=== PATIENT | female | born 1980 | race Caucasian/White ===

== ENCOUNTER → 2016-11-28 | Outpatient (CLI) | payer OTHER ==
[~2016-11-28] MED LIST: ACET-1311 PO; BCPILLS PO; BUPRTAB51 PO; CALC500C3 PO; CALC500T68 PO; DIVA500T59 PO; FAMO10TA10 PO; IBUP-1427 PO; MTR600X PO; PRENTAB26 PO; ZINC1CAP PO
[2016-11-28 14:40] LABS: URINE APPEARANCE CLEAR (CLEAR); URINE BILIRUBIN NEG (NEG); URINE COLOR YELLOW; URINE NITRITE NEG (NEG); URINE PH 6.5 (4.5-7.5); URINE SPECIFIC GRAVITY 1.004 (1.000-1.030); UROBILINOGEN NEG (NEG)
[2016-11-28 14:46] LABS: MANUAL MICROSCOPIC REQUIRED? NO; REVIEW REQ? NO
== END | disposition home or self-care (01) ==
LOC: C.LABSPEC 13:42
PROVIDERS: ATTEND Obstetrics & Gynecology
DX: O09.519 Supervision of elderly primigravida, unspecified trimester (principal)

== ENCOUNTER → 2016-12-14 | Outpatient (CLI) | payer OTHER | END | disposition home or self-care (01) | LOC: C.PAPS 13:39 | PROVIDERS: ATTEND Obstetrics & Gynecology | DX: O09.511 Supervision of elderly primigravida, first trimester (principal) ==

== ENCOUNTER → 2016-12-14 | Outpatient (CLI) | payer OTHER ==
[2016-12-14 12:08] LABS: BASO % 0.2 %; BASO ABS # 0.02 K/uL (0-0.2); COMPLETE YES; EOS % 0.4 %; HEMATOCRIT 32.7 % (37-47); IG% 0.3 %; LYMPH ABS # 1.83 K/uL (1.2-3.4); MEAN CELL VOLUME 83.6 fL (80-100); MEAN CORPUSCULAR HEMOGLOBIN 28.9 pg (25-34); MEAN CORPUSCULAR HGB CONC 34.6 g/dl (32-36); MEAN PLATELET VOLUME 10.2 fL (7.4-10.4); MONO % 8.3 %; NEUT % 72.8 %; PLATELET COUNT 261 K/uL (130-400); RED BLOOD COUNT 3.91 M/uL (4.2-5.4); WHITE BLOOD COUNT 10.18 K/uL (4.8-10.8)
[2016-12-16 01:09] LABS: CHLAMYDIA TRACH RNA*** NOT DETECTED (NOT DETECTED); GC (NEIS GONORRHOEAE)RNA** NOT DETECTED (NOT DETECTED)
== END | disposition home or self-care (01) ==
LOC: C.LAB1850 10:45
PROVIDERS: ATTEND Obstetrics & Gynecology
DX: O09.519 Supervision of elderly primigravida, unspecified trimester (principal)

== ENCOUNTER → 2016-12-25 | Outpatient (CLI) | payer OTHER ==
[2016-12-28 16:30] LABS: HCT 33.7 % (35.0-45.0); HEMOGLOBIN A2 2.7 % (1.8-3.5); HGB 11.1 g/dL (11.7-15.5); MCH 29.5 pg (27.0-33.0); RBC 3.79 Mill/uL (3.80-5.10); RDW 14.6 % (11.0-15.0)
== END | disposition home or self-care (01) ==
LOC: C.LAB1850 12:43
PROVIDERS: ATTEND Obstetrics & Gynecology
DX: D64.9 Anemia, unspecified (principal)

== ENCOUNTER → 2017-01-24 | Outpatient (CLI) | payer OTHER ==
[~2017-01-24] MED LIST changes: -FAMO10TA10 PO; +FAMO10TA16 PO
[2017-01-24 17:19] LABS: GTGD 50 Grams
== END | disposition home or self-care (01) ==
LOC: C.LAB1850 13:42
PROVIDERS: ATTEND Obstetrics & Gynecology
DX: O09.511 Supervision of elderly primigravida, first trimester (principal); Z3A.00 Weeks of gestation of pregnancy not specified

== ENCOUNTER → 2017-04-18 | Outpatient (CLI) | payer OTHER ==
[~2017-04-18] MED LIST changes: +FAMO10TA10 PO; -FAMO10TA16 PO
[2017-04-18 15:48] LABS: URINE APPEARANCE CLEAR (CLEAR); URINE BILIRUBIN NEG (NEG); URINE COLOR YELLOW; URINE EPITHELIAL CELL AUTO 20-30 /lpf (0-5); URINE NITRITE NEG (NEG); URINE SPECIFIC GRAVITY 1.019 (1.000-1.030); UROBILINOGEN NEG (NEG)
[2017-04-18 15:49] LABS: MANUAL MICROSCOPIC REQUIRED? NO; REVIEW REQ? NO
== END | disposition home or self-care (01) ==
LOC: C.LABSPEC 15:33
PROVIDERS: ATTEND Obstetrics & Gynecology
DX: O09.93 Supervision of high risk pregnancy, unspecified, third trimester (principal)

== ENCOUNTER → 2017-04-18 | Outpatient (CLI) | payer OTHER ==
[2017-04-18 15:23] LABS: HEMATOCRIT 33.3 % (37-47)
[2017-04-18 18:27] LABS: GTGD 50 Grams
== END | disposition home or self-care (01) ==
LOC: C.LAB1850 14:11
PROVIDERS: ATTEND Obstetrics & Gynecology
DX: O09.93 Supervision of high risk pregnancy, unspecified, third trimester (principal)

== ENCOUNTER → 2017-05-01 | Outpatient (CLI) | payer OTHER | END | disposition home or self-care (01) | LOC: C.LAB1850 07:54 | PROVIDERS: ATTEND Obstetrics & Gynecology | DX: O28.9 Unspecified abnormal findings on antenatal screening of mother (principal); Z3A.00 Weeks of gestation of pregnancy not specified ==

== ENCOUNTER 2017-06-08 13:32 | Outpatient (CLI) | payer OTHER ==
[~2017-06-08 13:32] MED LIST changes: -ACET-1311 PO; -CALC500C3 PO; -CALC500T68 PO; -FAMO10TA10 PO; -IBUP-1427 PO; -MTR600X PO; -PRENTAB26 PO; -ZINC1CAP PO
[2017-06-08] MEDS ORDERED: NURSING VERBAL MED ORDER ONE (13:45)
[2017-06-08] MEDS ORDERED: BETAMETH SOD PHOS/ACETATE IA 6 MG/ML IM ONE (14:00)
--- NOTE | 2017-06-11 10:01 | EDITING REQUIRED CODING QUERY ---
DIAGNOSIS NEEDED To promote full compliance with coding requirements relating to patient care, physician participation is requested in all cases of futures trader uncertainty. Please assist us with the question(s) below: Coding Question: The patient received care in labor and delivery on 06/08/17 as noted within the record. Please document the diagnosis that is being addressed by the medication/treatment. Provider Response: DIAGNOSIS: prior myomectomy that entered endometrium Visit to receive Celestone WEEKS GESTATION: 36 weeks Thank you for your assistance, Angelika Wells - Log Preparer
[2017-06-14] MEDS ORDERED: CALC500T68 PO (10:51)
[2017-06-14] MEDS ORDERED: ZINC1CAP PO (10:51)
[2017-06-14] MEDS ORDERED: PRENTAB26 PO (10:51)
[2017-06-14] MEDS ORDERED: CALC500C3 PO (11:15)
[2017-06-14] MEDS ORDERED: FAMO10TA10 PO (11:15)
[2017-06-17] MEDS ORDERED: MTR600X PO (09:45)
== END 2017-06-08 13:55 | disposition home or self-care (01) ==
LOC: C.OPB 13:32 → C.LD 13:33 → C.OPB 13:55
PROVIDERS: ATTEND Obstetrics & Gynecology
DX: O26.893 Other specified pregnancy related conditions, third trimester (principal); Z3A.36 36 weeks gestation of pregnancy

== ENCOUNTER 2017-06-09 13:24 | Outpatient (CLI) | payer OTHER ==
[2017-06-09] MEDS ORDERED: BETAMETH SOD PHOS/ACETATE IA 6 MG/ML IM STA (13:28)
--- NOTE | 2017-06-11 10:04 | EDITING REQUIRED CODING QUERY ---
DIAGNOSIS NEEDED To promote full compliance with coding requirements relating to patient care, physician participation is requested in all cases of christmas tree contractor uncertainty. Please assist us with the question(s) below: Coding Question: The patient received care in labor and delivery on 06/09/17 as noted within the record. Please document the diagnosis that is being addressed by the medication/treatment. Provider Response: DIAGNOSIS: need for celestone for early delivery WEEKS GESTATION: 36 Thank you for your assistance, Angelika Wells - Disability Examiner
[2017-06-14] MEDS ORDERED: ZINC1CAP PO (10:51)
[2017-06-14] MEDS ORDERED: CALC500T68 PO ×2 (10:51)
[2017-06-14] MEDS ORDERED: PRENTAB26 PO ×2 (10:51)
[2017-06-14] MEDS ORDERED: FAMO10TA10 PO (11:15)
[2017-06-14] MEDS ORDERED: CALC500C3 PO ×2 (11:15)
[2017-06-17] MEDS ORDERED: MTR600X PO ×2 (09:45)
== END 2017-06-09 13:50 | disposition home or self-care (01) ==
LOC: C.OPB 13:24 → C.LD 13:24 → C.OPB 13:50
PROVIDERS: ATTEND Obstetrics & Gynecology
DX: O26.893 Other specified pregnancy related conditions, third trimester (principal); O09.513 Supervision of elderly primigravida, third trimester; Z3A.36 36 weeks gestation of pregnancy

== ENCOUNTER 2017-06-15 06:06 | Inpatient (IN) | payer OTHER ==
[2017-06-14 10:58] VITALS: BMI 35.0
--- NOTE | 2017-06-14 11:22 | PAT Medication Instructions ---
Service Date Jun 14, 2017. Current Home Medication List Calcium Carbonate (Tums), 1 TAB PO for reflux Calcium W/ Magnesium (Calcium/Magnesium), 1 TAB PO QDL Famotidine (Pepcid Ac), 1 TAB PO WK Multivit/Min/Iron/Fol Ac/Pren ( Vitamin), 1 TAB PO QAM Zinc Sulfate (Zinc Sulfate), 25 MG PO QAM Medication Instructions For Your Scheduled Surgery - Hold the following medications the morning of surgery: Calcium Carbonate (Tums), 1 TAB PO for reflux Calcium W/ Magnesium (Calcium/Magnesium), 1 TAB PO QDL Multivit/Min/Iron/Fol Ac/Pren ( Vitamin), 1 TAB PO QAM Zinc Sulfate (Zinc Sulfate), 25 MG PO QAM - Take the following medications the morning of surgery with a sip of water OTHERWISE NOTHING TO EAT OR DRINK AFTER MIDNIGHT: Famotidine (Pepcid Ac), 1 TAB PO WK If you have any questions please call us at [phone] or [phone] or [phone]
[2017-06-14 12:29] LABS: BASO % 0.1 %; BASO ABS # 0.02 K/uL (0-0.2); COMPLETE YES; EOS % 0.3 %; HEMATOCRIT 33.3 % (37-47); IG% 0.9 %; LYMPH % 17.1 %; LYMPH ABS # 2.43 K/uL (1.2-3.4); MEAN CELL VOLUME 86.3 fL (80-100); MEAN CORPUSCULAR HEMOGLOBIN 29.5 pg (25-34); MEAN CORPUSCULAR HGB CONC 34.2 g/dl (32-36); MEAN PLATELET VOLUME 11.1 fL (7.4-10.4); MONO % 8.2 %; NEUT % 73.4 %; PLATELET COUNT 245 K/uL (130-400); RED BLOOD COUNT 3.86 M/uL (4.2-5.4); WHITE BLOOD COUNT 14.18 K/uL (4.8-10.8)
--- NOTE | 2017-06-14 13:22 | HISTORY & PHYSICAL EXAMINATION ---
DATE OF ADMISSION: 06/15/2017 PRINCIPAL DIAGNOSES: Intrauterine at 36 and 5/7th days, prior myomectomies breeching the endometrial cavity. PRINCIPAL PROCEDURE: Primary low transverse cervical section. HISTORY OF PRESENT ILLNESS: The patient is a 37-year-old G1, P0 white female, EDC of 07/08/2017, who presents at 36 and 5/7th weeks for a primary section because of prior myomectomies that entered the endometrial cavity. She also had a hysteroscopic removal of fibroids at the same time. She has received 2 doses of Celestone, one on June 08 and again on June 09 in preparation for this early delivery. She has had some cramping, but no other symptoms of labor. The patient understands that procedure and both her 's and her questions were answered to their satisfaction. PAST MEDICAL HISTORY: Significant for heart murmur, for which she requires SBE prophylaxis, migraine headaches and anxiety and depression, for which she takes no medications at this point. ALLERGIES: She has no known drug allergies, but SHE IS IN GI SENSITIVE TO PERCOCET AND CODEINE; however, she can take Dilaudid. PAST SURGICAL HISTORY: She had an appendectomy, wisdom teeth removed, laparoscopic and hysteroscopic removal of uterine fibroids entering the endometrial cavity, and cryosurgery of her cervix in 2002. MEDICATIONS: vitamin, probiotic capsules and iron 325 mg p.o. daily. OUTCOMES SPECIALIST HISTORY: Periods are every 29 days. No history of PID, VD or herpes. She does have a history of endometriosis and polycystic ovarian disease. Pap smears have been within normal limits. HISTORY: Blood type is O positive. Antibody screen is negative. Rubella is immune. RPR is nonreactive. Hepatitis is negative. HIV is negative. Ultrasound for anatomy was complete at 20 weeks. Hemoglobin at 28 weeks is 10.8 and hematocrit 33.3. One-hour Glucola was elevated at 139, but two-hour glucose tolerance test was within normal limits. Group B strep is positive. NSTs have been reactive. SOCIAL HISTORY: She does not smoke or drink. FAMILY HISTORY: Noncontributory. PHYSICAL EXAMINATION: VITAL SIGNS: Blood pressure is 116/76. GENERAL: She is a well-nourished and well developed white female, in no apparent distress. LUNGS: Clear to auscultation. HEART: Regular rate and rhythm. No murmurs or gallops. ABDOMEN: Gravid and consistent with a 36 weeks' gestation. Fundal height is measuring at 37 cm. There is no hepatosplenomegaly or masses palpable. PELVIC: Deferred. EXTREMITIES: With trace edema and no calf tenderness. ASSESSMENT: A 37-year-old presents for primary section because of multiple laparoscopic myomectomies that entered the endometrial cavity. She has received 2 doses of Celestone in preparation for this early delivery. Please see the orders for further directions.
[~2017-06-15] VITALS: Ht 157.5 cm; Wt 90.0 kg
[2017-06-15] VITALS (10 sets, daily range): BP systolic 111–131; BP diastolic 64–69; PULSE 62–67; TEMP 36.7–36.8; O2SAT 97–100; Ht 157.5 cm; Wt 90.0 kg
[~2017-06-15 06:06] MED LIST changes: +CALC500C3 PO; +CALC500T68 PO; +CEFAZOLIN IV 2,000 MG in DEXTROSE 5% 50ML IV SCH; +CITRIC ACID/SODIUM CITRATE 15 ML UDC PO SCH; +FAMO10TA10 PO; +LACTATED RINGER'S 1000ML 1,000 ML IV SCH; +PRENTAB26 PO; +ZINC1CAP PO
--- NOTE | 2017-06-15 08:43 | History & Physical Bridge Note ---
H&P Re-Evaluation Bridge Note: I have examined the patient, reviewed the History & Physical and in the interval since the performance of the History & Physical I have noted the following changes of clinical significance: No changes noted
[2017-06-15] MEDS ORDERED: FENTANYL CITRATE INJ 50 MCG/1 ML 2 ML VIAL ONE (09:52)
[2017-06-15] MEDS ORDERED: OXYTOCIN INJ 10 UNITS/ML VIAL ONE ×2 (09:53→11:04)
[2017-06-15] MEDS ORDERED: MoRPHine SULFATE PF 1 MG/ML 10 ML AMP/VIAL ONE (09:53)
[2017-06-15] MEDS ORDERED: PHENYLEPHRINE 100MCG/ML 5ML SYR ONE (10:49)
[2017-06-15] MEDS ORDERED: SENNA 8.6 MG TAB PO PRN (11:15)
[2017-06-15] MEDS ORDERED: MAGNESIUM HYDROXIDE SUSP 30 ML UDC PO PRN (11:15)
[2017-06-15] MEDS ORDERED: BENZOCAINE 20% AER SPR 82.5 GM CAN EXT PRN (11:15)
[2017-06-15] MEDS ORDERED: HYDROCORTISONE ACETATE 25 MG SUPP PR PRN (11:15)
[2017-06-15] MEDS ORDERED: CALCIUM CARBONATE 500 MG CHEWABLE PO PRN (11:15)
[2017-06-15] MEDS ORDERED: SUPERCREAM 0.870 % 15GM JAR EXT PRN (11:15)
[2017-06-15] MEDS ORDERED: LANOLIN OINT EXT PRN ×2 (11:15)
--- NOTE | 2017-06-15 11:23 | [facility] Post Operative Brief Note ---
Immediate Operative Summary Operative Date Jun 15, 2017. Pre-Operative Diagnosis Primary Caesarean section at 36 and 5/7 weeks due to prior myomectomies. Post-Operative Diagnosis same as pre-op Procedure(s) Performed Low uterine transverse incision, delievery of live male child at [address] Abraham Abdullahi Second Floor Operator Surgeon(s) Dr. Nuno Teresa Estimated Blood Loss 700ml Findings DELIVERED A VIABLE MALE , 9, 9. WEIGHT 6#13. NORMAL UTERUS WITH INTACT WALL, SEVERAL SEEDLING FIBROIDS VISUALIZED. NORMAL FALLOPIAN TUBES BILATERALLY. Specimens A: Placenta - hold B: Cord Blood Drains ECHAVARRIA TO STRAIGHT DRAINAGE, CLEAR URINE AT END OF CASE. Complication(s) None Disposition Recovery Room / PACU
[2017-06-15] MEDS ORDERED: NALBUPHINE HCL INJ 10 MG/ML AMP IV PRN (11:30)
[2017-06-15] MEDS ORDERED: NO NARCOTICS OR SEDATIVES SCH (11:30)
[2017-06-15] MEDS ORDERED: LACTATED RINGER'S 1000ML 500 ML IV PRN (11:30)
[2017-06-15] MEDS ORDERED: NALOXONE HCL INJ 1 MG in SODIUM CHLORIDE 0.9% 1000ML 1,000 ML IV PRN ×4 (11:30)
[2017-06-15] MEDS ORDERED: ONDANSETRON INJ 2 MG/ML 2 ML VIAL IV PRN (11:30)
[2017-06-15] MEDS ORDERED: PROMETHAZINE HCL INJ 25 MG in SODIUM CHLORIDE 0.9% 50ML 50 ML IV PRN (11:30)
[2017-06-15] MEDS ORDERED: NALOXONE HCL 0.4 MG/1 ML VIAL/CARP IV PRN (11:30)
[2017-06-15] MEDS ORDERED: EpHEDrine SULFATE INJ 50 MG/ML AMP IV PRN (11:30)
[2017-06-15] MEDS ORDERED: DiphenhydrAMINE HCL 50 MG/ML VIAL IV PRN (11:30)
[2017-06-15] MEDS ORDERED: MoRPHine SULFATE PF 1 MG/ML 10 ML AMP/VIAL EPI PRN (11:30)
[2017-06-15] MEDS ORDERED: NALOXONE HCL INJ 0.08 MG in SYRINGE 1.8 ML IV PRN (11:30)
[2017-06-15] MEDS ORDERED: SODIUM CHLORIDE 0.9% 1000ML 1,000 ML IV PRN (11:30)
--- NOTE | 2017-06-15 12:29 | OPERATIVE REPORT ---
DATE OF OPERATION: 06/15/2017 PREOPERATIVE DIAGNOSES: Intrauterine at 36 and 5/7 weeks, prior multiple myomectomies that breeched the endometrial cavity. POSTOPERATIVE DIAGNOSIS: Same plus delivery of a viable male , 6 pounds 13 ounces. PROCEDURE: Primary low transverse cervical section. SURGEON: Dr. Kristen Castaneda. MANUFACTURING MAINTENANCE MANAGER: Dr. Teira Teresa, PGY1 ANESTHESIA: Subarachnoid block. HISTORY OF PRESENT ILLNESS: The patient is a 37-year-old 1, para 0 white female, EDC of 07/08/2017 who presents for primary section because of prior multiple myomectomies both laparoscopic and hysteroscopic. There was entrance of the endometrial cavity with this procedure. Therefore, she is scheduled for primary section. She received 2 doses of Celestone on 06/08/2017 and then again another dose on 06/09/2017. The patient understands the risks of procedure and is willing to proceed. GROSS FINDINGS: Uterus is gravid and consistent with a term in size. Bilateral ovaries and fallopian tubes are grossly normal, no evidence of any pelvic adhesions or abdominal adhesions. There is evidence of a pucker in the anterior wall of the uterus, although the uterine wall is thick and no areas of thinning present. PROCEDURE: After the patient received adequate subarachnoid block, she was prepped and draped in usual sterile fashion. After a low transverse skin incision was made. This was carried with a scalpel to the fascia. The fascial incision was then extended with Garnett scissors. The edges were grasped with Veena clamps. The underlying rectus muscle was bluntly and sharply dissected off the overlying fascia. The rectus muscles were bluntly divided along the midline and the underlying peritoneum elevated and entered sharply. The bladder blade was placed in the abdomen. The lower uterine segment was identified and the bladder was taken down off the anterior surface of the lower uterine segment and placed behind the bladder blade. The lower uterine segment was then entered with a scalpel and extended transversally. The infant was delivered from the vertex presentation with moderate fundal pressure and was gently brought in through the incision with the vacuum. There was spontaneous crying and mouth and nasopharynx were suctioned on delivery. The rest of the infant delivered without difficulty. Infant was again crying vigorously and moving all 4 limbs. The cord was clamped and cut after 30 seconds and handed off to the cartographic engineer in attendance. The placenta was expressed intact with a 3-vessel cord. The uterus was then exteriorized and covered with a clean lap sponge. The uterine cavity was explored and found to be free of any placental tissue or membranes. Uterus was closed in 2 layers in a running locking imbricating fashion with 0 Monocryl. Hemostasis was noted to be excellent. The posterior cul-de-sac was irrigated with normal saline. The anterior cul-de-sac was also irrigated with normal saline. The gutters were explored after putting the uterus back inside the abdominal cavity and were free of any placental tissue, membranes or fluid. The rectus muscles were brought together on the midline with individual stitches of 0 Monocryl. Fascia was closed in a running fashion with 0 Vicryl. The skin edges were reapproximated using a subcuticular stitch of 4-0 Vicryl after irrigating the adipose layer. Estimated blood loss was 700 mL. I attest to the content of the Intraoperative Record and any orders documented therein. Any exceptions are noted below. LAWRENCE
[2017-06-15] MEDS: KETOROLAC TROMETHAMINE 30 MG/ML VIAL IV. PRN ×2 (12:42→22:25)
[2017-06-15] MEDS: OXYTOCIN INJ 20 UNITS in LACTATED RINGER'S 1000ML 1,000 ML IV SCH ×2 (12:45→20:42)
[2017-06-15] MEDS: SIMETHICONE 80 MG CHEW PO SCH ×3 (13:00→20:39)
--- NOTE | 2017-06-15 13:26 | Anesthesiology Progress Note ---
Anesthesia Post Op Note Date & Time Jun 15, 2017 at 13:26 Vital Signs Pain Intensity: 4.0 Notes Mental Status: alert / awake / arousable, participated in evaluation Pt Amnestic to Procedure: No Nausea / Vomiting: adequately controlled Pain: adequately controlled Airway Patency, RR, SpO2: stable & adequate BP & HR: stable & adequate Hydration State: stable & adequate Neuraxial Anesthesia: was administered, sensory block is resolving Anesthetic Complications: no major complications apparent
[2017-06-15] MEDS: DOCUSATE SODIUM 100 MG CAP PO SCH (20:39)
[2017-06-16 00:50] VITALS: O2SAT 96
[2017-06-16 02:00] VITALS: O2SAT 99
[2017-06-16 03:00] VITALS: O2SAT 98
[2017-06-16 04:00] VITALS: BP 108/64; PULSE 60; TEMP 36.5; O2SAT 98
[2017-06-16] MEDS ORDERED: DC INTRASPINAL MORPHINE SCH (05:30)
[2017-06-16] MEDS ORDERED: ONDANSETRON INJ 2 MG/ML 2 ML VIAL IV PRN (05:30)
[2017-06-16] MEDS ORDERED: HYDROmorphone HCL 2 MG TAB PO PRN (05:30)
[2017-06-16] MEDS ORDERED: KETOROLAC TROMETHAMINE 30 MG/ML VIAL IV. PRN (05:30)
[2017-06-16] MEDS ORDERED: DiphenhydrAMINE HCL 50 MG/ML VIAL IV PRN (05:30)
[2017-06-16] MEDS ORDERED: MEPERIDINE HCL 50 MG/ML CARP IV PRN ×2 (05:30)
[2017-06-16] MEDS ORDERED: PROMETHAZINE HCL INJ 25 MG in SODIUM CHLORIDE 0.9% 50ML 50 ML IV PRN (05:30)
[2017-06-16] MEDS ORDERED: ZOLPIDEM TARTRATE 5 MG TAB PO PRN (05:30)
[2017-06-16 06:47] LABS: MEAN CORPUSCULAR HGB CONC 32.8 g/dl (32-36); MEAN PLATELET VOLUME 10.4 fL (7.4-10.4); PLATELET COUNT 238 K/uL (130-400)
[2017-06-16 07:30] VITALS: BP 106/67; PULSE 72; TEMP 36.8; O2SAT 99
[2017-06-16 07:42] LABS: BASO % 0.1 %; BASO ABS # 0.02 K/uL (0-0.2); COMPLETE YES; EOS % 0.1 %; HEMATOCRIT 29.3 % (37-47); IG% 0.8 %; LYMPH % 11.1 %; LYMPH ABS # 1.59 K/uL (1.2-3.4); MEAN CORPUSCULAR HEMOGLOBIN 28.8 pg (25-34); MONO % 6.9 %; RED BLOOD COUNT 3.33 M/uL (4.2-5.4); WHITE BLOOD COUNT 14.33 K/uL (4.8-10.8)
--- NOTE | 2017-06-16 07:44 | Progress Note ---
Subjective Jun 16, 2017. Subjective conversation w/ patient, physical exam, chart review, lab review Ambulation: ambulating normally Voiding: vallejo catheter in place Passing Gas: No Diet Tolerance: Clear Liquids Lochia: Moderate Feeding Type: Breast Feeding Pain: controlled Review of Systems Respiratory: No shortness of breath Cardiac: No chest pain Abdomen: No nausea, No vomiting Female : No dysuria Objective Vital Signs Date Time Temp Pulse Resp B/P (MAP) Pulse Ox O2 Delivery O2 Flow Rate FiO2 06/16/17 04:00 18 98 06/16/17 04:00 36.5 60 18 108/64 (79) 98 Room Air 06/16/17 03:00 16 98 06/16/17 02:00 20 99 06/16/17 00:50 16 96 06/15/17 23:45 99 Room Air 06/15/17 23:45 36.7 62 18 117/65 (82) 99 Room Air 06/15/17 23:45 18 99 06/15/17 22:20 18 100 06/15/17 21:25 18 99 06/15/17 20:20 18 100 06/15/17 19:25 36.8 67 18 111/67 (82) 100 Room Air 06/15/17 19:25 18 100 06/15/17 18:20 20 100 06/15/17 17:20 18 97 06/15/17 16:20 18 99 06/15/17 15:23 18 100 06/15/17 15:23 36.7 67 18 131/69 (89) 100 Room Air 06/15/17 15:23 Room Air 06/15/17 14:20 18 100 06/15/17 14:20 100 Room Air 06/15/17 14:20 100 Room Air 06/15/17 14:20 36.8 64 18 115/64 (81) 100 Room Air Physical Exam General Appearance: WELL-APPEARING, WD/WN, NO APPARENT DISTRESS Respiratory/Chest: lungs clear, normal breath sounds Cardiovascular: regular rate, rhythm, no gallop Abdomen: normal bowel sounds, soft, + distended Fundus: Firm, Tender (appropriately tender), Relation to Umbilicus (at level of U) Incision Description: Clean, Dry & Intact Extremities: no calf tenderness Laboratory Results Last 24 Hours Test 06/16/17 06:23 Mean Corpuscular Hemoglobin Concent 32.8 g/dl Platelet Count 238 K/uL Mean Platelet Volume 10.4 fL Assessment and Plan Post-Op Day#: 1 Continue Routine Care: - Vital Signs reviewed and WNL. - Hgb pending. (on admission was 11.4.) - Blood Type: O+, GBS + , Rubella Immune. - Pt is doing well clinically. - Monitor and Control pain with Motrin PRN - pt does not tolerate percocet or vicadin well, and refuses oral dilaudid so pain is being controlled with toradol for now. Once passes gas, may resume regular diet, Monitor Lochia. - Encourage breast feeding. - Continue routine post op care. NEVA TERESA PGY1 FM RESIDENT Resident Physician Supervision Note: I interviewed and examined the patient. Discussed with Dr. Teresa and agree with findings and plan as documented in the note. Any exceptions or clarifications are listed here: [None] Documented By: Madeline Sexton Resident Tracking Resident Involvement: Resident Care Provided Care Provided: OB Delivery
[2017-06-16] MEDS ORDERED: PRENATAL VITAMIN TAB PO SCH (08:00)
--- NOTE | 2017-06-16 08:03 | Discharge Instructions ---
Discharge Instructions Date of Service Jun 16, 2017. Admission Reason for Admission: History of Uterine Myomectomy Discharge Discharge Diagnosis / Problem: DELIVERY Discharge Goals Goal(s): Routine recovery after Medications Continue Dispensed Medications: supercream, dermaplast, tucks, lansinoh Activity Recommendations Activity Limitations: per Instructions/Follow-up section . Instructions / Follow-Up Instructions / Follow-Up ACTIVITY RECOMMENDATIONS: * Gradual return to full activity over the next 2-3 weeks. * No lifting - nothing heavier than baby over the next 2-3 weeks. * Do not engage in vigorous exercise, sexual activity or sports until cleared by your physician. * Do not drive or operate any motorized equipment until cleared by your physician. * You may shower/bathe daily. MEDICATIONS: For discomfort or pain, you may use Acetaminophen (Tylenol), Ibuprofen (Advil), or Naproxen (Aleve) following the package directions. For constipation you may use Colace following the package directions. BREAST CARE: If you are not breast feeding: * Wear a supportive bra 24 hours a day for one to two weeks. * Avoid stimulating your breasts and nipples as much as possible during the first few weeks after delivery. * When taking a shower, have the warm water hit your back, not breasts. * When your breasts feel full, apply ice packs. Usually three to four times a day helps ease the discomfort. * Take a mild pain medication (Tylenol / Motrin) when you are uncomfortable. If breast feeding: * Use breast milk to lubricate nipples. Lansinoh cream may be used for sore nipples. You do not need to remove cream prior to breast feeding. If using a different brand of cream, check the label for directions regarding removal of cream prior to nursing. * Wear a supportive bra. * If having problems with breasts or breast feeding, call a clothing consultant or your health care provider. SPECIAL CARE INSTRUCTIONS: When you are discharged from the hospital, it is important for you to follow the instructions listed below: * During the first week at home, you should be able to care for yourself and your baby. In addition, the usual light household activities are encouraged. * Limit your activities to the way you feel. Do not try to clean the house or move furniture. Be sensible. * If you actively engage in sports and have done so up until the time of your delivery, you may resume these activities as soon as you feel able. This may take up to one month or even longer. Use good judgment. * Continue to take your vitamins for at least six weeks after the of your baby. * Your diet need not be limited unless you were on a special diet before your delivery. Breast-feeding mothers need around 2500 calories per day and at least 64-80 ounces of fluid per day (8 to 10 glasses). * You should eat foods from the four major food groups. Crash diets or fad diets are to be avoided. Eating lean meats, fresh fruits and vegetables, low-fat dairy products, high fiber foods and a regular exercise program, will help you get back to your pre- weight without putting your health at risk. * Constipation is sometimes a problem after delivery. Take a mild laxative as needed. If breast feeding, Milk of Magnesia is acceptable to use. You may use a suppository or Fleets enema. * A daily shower or tub bath is suggested. Wash incision daily with warm soapy water and pat dry. It doesn't need to be covered unless drainage is present. * A bloody vaginal discharge will usually continue until around four weeks . A small amount of bleeding may continue for as long as six weeks. Vaginal discharge changes from the bright red bleeding after delivery to pink then brownish and finally yellowish-pink before becoming white and disappearing. * Bleeding may increase with activity. Your first period may come in 4-8 weeks. If you are breast feeding, your period may be delayed even longer. * [place] (sex) can begin whenever both you and your partner feel comfortable and do not have any form of genital infection. It is recommended that you wait at least six weeks for internal and external healing to occur. If you have questions, please talk to your health care practitioner. A condom should be used to prevent infection and . * Foreplay, gentle intercourse and lubrication is very important the first several times to prevent pain. A water-based lubricant such as K-Y jelly or Astroglide may be used. * If you have RH negative blood and your baby is RH positive, you will receive RHOGAM by injection prior to discharge. The nurse will give you a card to keep with you that has the date and place that you received RHOGAM after delivery. * During your care, you had a Rubella screen done to check for the presence of rubella antibodies in your blood. If your test was negative, you will receive a Rubella vaccine prior to discharge. This vaccine may cause a fever, soreness at the injection site and flu-like symptoms. If these symptoms persist, notify your health care practitioner. is not advised for one month after a Rubella vaccine. * Verbalizes understanding of car seat law as reviewed with patient nursing. * Car Seat hand-out given and reviewed with patient by nursing. * Shaken baby information reviewed with patient by nursing. Call you doctor if: * Heavy bleeding (saturating several pads an hour) or passing clots the size of your fist. * A fever >101 degrees F (38.3 degrees C) on two occasions four hours apart and /or chills. * Unusual pain in the pelvic or vaginal areas. * Call the doctor for any increased redness, drainage or swelling around the incision and any pain unrelieved by prescribed pain medication. * "Baby Blues" lasting longer than two weeks. If you have any questions or concerns, call your health care practitioner at . FOLLOW UP VISIT: * Please call the office at to schedule a 6 week examination. It is important you keep this appointment. It is important for you to make arrangements for either yearly or twice yearly check-ups thereafter. Current Hospital Diet Patient's current hospital diet: Clear Liquid Diet Discharge Diet Recommended Diet: Regular Diet Procedures Procedures Performed: Low uterine transverse incision, delievery of live male child at 1047 Pending Studies Studies pending at discharge: no Medical Emergencies . Who to Call and When: Medical Emergencies: If at any time you feel your situation is an emergency, please call [phone] immediately. . Non-Emergent Contact Non-Emergency issues call your: Primary Care Provider . . "Provider Documentation" section prepared by Tiera Teresa. . VTE Core Measure Inpt VTE Proph given/why not?: SCD's
[2017-06-16] MEDS: FERROUS SULFATE 325 MG TAB PO SCH (09:28)
[2017-06-16] MEDS: DOCUSATE SODIUM 100 MG CAP PO SCH ×2 (09:28→19:27)
[2017-06-16] MEDS: PRENATAL VITAMIN TAB PO SCH (09:28)
[2017-06-16] MEDS: SIMETHICONE 80 MG CHEW PO SCH ×4 (09:28→19:26)
[2017-06-16] MEDS: ACETAMINOPHEN 325 MG TAB PO PRN ×2 (11:41→19:24)
--- NOTE | 2017-06-16 13:24 | Anesthesiology Progress Note ---
Anesthesia Progress Note Date of Service Jun 16, 2017. Progress Notes Ms. Kimberley Rivera is 1 day post from a delivery. Her intraoperative course was notable for very difficult spinal placement resulting in the need for a 22G spinal needle. Today the patient is experiencing a severe positional headache. The headache is worse sitting up and walking and is relieved with laying down. The pain radiates down her neck and into her shoulders. The headache has been unrelieved with conservative measures, including fluids and caffeine. The headache is so severe that it is preventing the patient from easily her . On exam, the patient is lying down with the lights off and tearful secondary to the pain from her headache and her inability to easily walk and care for her . I spoke with her at length about the normal course of PDPH, including that most resolve in about 6 to 7 days without intervention. Due to the severity of her headache and its negative impact on her ability to care for her infant, I did recommend placement of a blood patch at this time. Discussed the risks of blood patch placement, including additional dural puncture with exacerbation of PDPH, bruising, bleeding, infection, and nerve damage. Patient intends to discuss blood patch with her and will call later to let me know if she would like it placed. Yvonne Kingsley MD, PhD Anesthesiology
[2017-06-16] MEDS: IBUPROFEN 600 MG TAB PO PRN ×2 (13:48→22:20)
[2017-06-16 15:45] VITALS: BP 120/73; PULSE 74; TEMP 37.3; O2SAT 99
--- NOTE | 2017-06-16 18:06 | Anesthesiology Progress Note ---
Anesthesia Progress Note Date of Service Jun 16, 2017. Progress Notes Followed up with Ms. Rivera concerning her headache. She reports continue pain in her neck and should but some improvement in her headache with tylenol and motrin. She was able to pump sitting up during our follow-up conversation without symptoms of severe headache, although she does report increased neck stiffness and pain with sitting. Due to her improvement during the day, we will plan to treat conservatively tonight with heat packs, tylenol and motrin. Will follow up in AM and possibly place blood patch than if her symptoms don't continue to improve. Yvonne Kingsley MD, PhD Anesthesiology
[2017-06-16] MEDS ORDERED: BISACODYL 5 MG TABEC PO ONE (21:00)
[2017-06-17 00:25] VITALS: BP 115/71; PULSE 64; TEMP 37.1
[2017-06-17] MEDS: IBUPROFEN 600 MG TAB PO PRN ×5 (03:24→21:00)
[2017-06-17] MEDS: ACETAMINOPHEN 325 MG TAB PO PRN (05:51)
[2017-06-17 06:22] LABS: HEMATOCRIT 28.5 % (37-47)
[2017-06-17 07:30] VITALS: BP 123/76; PULSE 73; TEMP 36.8; O2SAT 99
[2017-06-17] MEDS ORDERED: FAMOTIDINE 20 MG TAB PO PRN (07:30)
[2017-06-17] MEDS: PRENATAL VITAMIN TAB PO SCH (08:13)
[2017-06-17] MEDS: FERROUS SULFATE 325 MG TAB PO SCH (08:13)
[2017-06-17] MEDS: DOCUSATE SODIUM 100 MG CAP PO SCH ×2 (08:13→19:24)
[2017-06-17] MEDS: SIMETHICONE 80 MG CHEW PO SCH ×4 (08:13→19:24)
--- NOTE | 2017-06-17 08:57 | Progress Note ---
Subjective Jun 17, 2017. Subjective conversation w/ patient, physical exam Ambulation: ambulating normally Voiding: no voiding problems, vlalejo catheter in place Passing Gas: Yes Diet Tolerance: Regular Diet Lochia: Small Feeding Type: Breast Feeding Pain: controlled with motrin & tylenol Comment: brown is makign her nauseous Review of Systems Constitutional: No fever, No chills, No sweats, No weight loss, No weakness, No fatigue, No problem reported Breast: No see HPI, No breast lump, No change in shape, No nipple discharge, No breast pain, No problem reported Objective Vital Signs Date Time Temp Pulse Resp B/P (MAP) Pulse Ox O2 Delivery O2 Flow Rate FiO2 06/17/17 07:30 36.8 73 18 123/76 (92) 99 Room Air 06/17/17 07:30 Room Air 06/17/17 00:25 Room Air 06/17/17 00:25 37.1 64 16 115/71 (86) 06/16/17 15:45 37.3 74 18 120/73 (89) 99 Room Air 06/16/17 15:45 Room Air Physical Exam General Appearance: WELL-APPEARING, NO APPARENT DISTRESS Abdomen: soft Fundus: Firm, Non-Tender, Relation to Umbilicus (2 below U) Incision Description: Clean, Dry & Intact Extremities: no calf tenderness Laboratory Results Last 24 Hours Test 06/17/17 06:07 Hemoglobin 9.4 g/dL Hematocrit 28.5 % Assessment and Plan Post-Op Day#: 2 Continue Routine Care: stable post-op course continue current care plan.
[2017-06-17] MEDS ORDERED: FERROUS SULFATE 325 MG TAB PO SCH (09:00)
[2017-06-17] MEDS ORDERED: MTR600X PO ×2 (09:45)
[2017-06-17] MEDS ORDERED: BISACODYL 10 MG SUPP PR PRN (11:15)
[2017-06-17 15:30] VITALS: BP 135/83; PULSE 76; TEMP 36.7
--- NOTE | 2017-06-17 18:44 | Anesthesiology Progress Note ---
Anesthesia Progress Note Date of Service Jun 17, 2017. Progress Notes I saw the patient in follow-up for possible post dural puncture headache. Patient reports today that she has continued neck stiffness, but denies any headache. She was able to sit up in bed during our conversation and has been able to get up to ambulate. She feels that her symptoms are still better than they were yesterday morning and at this time she does not want an epidural blood patch. I again reviewed the normal course for postdural puncture headache and encouraged her to return to the hospital if her symptoms didn't continue to improve for possible placement of blood patch. Yvonne Kingsley MD, PhD Anesthesiology
[2017-06-17] MEDS ORDERED: CYCLOBENZAPRINE HCL 10 MG TAB PO PRN (19:15)
[2017-06-17 23:35] VITALS: BP 126/84; PULSE 76; TEMP 36.6; O2SAT 97
[2017-06-17] MEDS ORDERED: ONDANSETRON 4 MG TAB PO PRN (23:45)
[2017-06-17] MEDS ORDERED: OXYCODONE/ACETAMINOPHEN 5-325 TAB PO PRN (23:45)
[2017-06-18] MEDS ORDERED: NURSING VERBAL MED ORDER ONE
[2017-06-18] MEDS: IBUPROFEN 600 MG TAB PO PRN ×3 (00:13→10:17)
[2017-06-18] MEDS: ACETAMINOPHEN 325 MG TAB PO PRN ×2 (02:44→08:29)
[2017-06-18] MEDS ORDERED: BUTALBITAL/ACETAMIN/CAFFEINE TAB PO STA (06:50)
--- NOTE | 2017-06-18 06:53 | Progress Note ---
Subjective Jun 18, 2017. Subjective conversation w/ patient, physical exam, chart review, lab review Ambulation: ambulating normally Voiding: no voiding problems Passing Gas: Yes Diet Tolerance: Regular Diet Lochia: Moderate Feeding Type: Breast Feeding Pain: moderate - neck related Review of Systems Respiratory: No shortness of breath Cardiac: No chest pain Abdomen: No nausea, No vomiting Female : No dysuria Objective Vital Signs Date Time Temp Pulse Resp B/P (MAP) Pulse Ox O2 Delivery O2 Flow Rate FiO2 06/17/17 23:35 36.6 76 18 126/84 (98) 97 Room Air 06/17/17 23:35 Room Air 06/17/17 15:30 36.7 76 20 135/83 (100) Room Air 06/17/17 15:30 Room Air 06/17/17 07:30 36.8 73 18 123/76 (92) 99 Room Air 06/17/17 07:30 Room Air Physical Exam General Appearance: WELL-APPEARING, WD/WN, NO APPARENT DISTRESS Respiratory/Chest: lungs clear, normal breath sounds, no respiratory distress Cardiovascular: regular rate, rhythm, no gallop Abdomen: normal bowel sounds, soft Fundus: Firm, Non-Tender, Relation to Umbilicus (1 below U) Incision Description: Clean, Dry & Intact Extremities: no calf tenderness Assessment and Plan Post-Op Day#: 3 Continue Routine Care: Resident Physician Supervision Note: I interviewed and examined the patient. Discussed with Dr. Teresa and agree with findings and plan as documented in the note. Any exceptions or clarifications are listed here: [None] Documented By: Kristen Arevalo - Vital Signs reviewed and WNL. - Blood Type: O+, GBS + , Rubella Immune. - Pt is doing well clinically. - Monitor and Control pain with Motrin PRN Resume regular diet, Monitor Lochia. Ordered 1 tab fioricet to be given now to help with neck pain. - Encourage breast feeding. - Pt counselled on discharge instructions. NEVA TERESA PGY1 FM RESIDENT Resident Tracking Resident Involvement: Resident Care Provided Care Provided: OB Delivery
[2017-06-18] MEDS ORDERED: BUTALBITAL/ACETAMIN/CAFFEINE TAB PO PRN ×2 (07:45)
[2017-06-18] MEDS: SIMETHICONE 80 MG CHEW PO SCH ×2 (08:26→12:00)
[2017-06-18] MEDS: FERROUS SULFATE 325 MG TAB PO SCH (08:26)
[2017-06-18] MEDS: PRENATAL VITAMIN TAB PO SCH (08:26)
[2017-06-18] MEDS: DOCUSATE SODIUM 100 MG CAP PO SCH (08:26)
[2017-06-18 08:35] VITALS: BP 123/75; PULSE 76; TEMP 36.9; O2SAT 99
[2017-06-18 13:30] VITALS: BP_DIAS 75; PULSE 76; TEMP 36.9
--- NOTE | 2017-06-21 10:10 | DISCHARGE SUMMARY ---
PRINCIPAL DIAGNOSIS: Intrauterine at 36 and 5/7 weeks, prior multiple myomectomies that had breached the endometrial cavity. PRINCIPAL PROCEDURE: Primary low transverse cervical section. HISTORY OF PRESENT ILLNESS: The patient is a 37-year-old 1, para 0 white female, EDC of 07/08/2017 who presented for primary section because of prior multiple myomectomies that had entered the endometrial cavity. She had received 2 doses of Celestone prior to the section which was done at 36 and 5/7 weeks. The was done without any complications. Anatomy was essentially normal with no evidence of any pelvic adhesions or abdominal adhesions. Postoperative course was complicated by persistent neck tension headache which initially was thought to be a spinal headache; however, her headache did not resolve when she laid flat. The patient had been given Fioricet in the past for tension type headaches and she was given that prior to her discharge with some relief from her headache. She was eating a regular diet on her 1st postop day, ambulating and voiding without difficulty. She remained afebrile throughout her hospital stay. Hemoglobin on admission was 11.4. First postop day hemoglobin 9.6, hematocrit 29.3. Second postop day 9.4 hemoglobin with hematocrit 28.5. She was sent home with prescriptions for Fioricet 1-2 tablets p.o. q. 4 hours p.r.n. headache and ibuprofen 650 mg p.o. q. 4 hours p.r.n. pain. She is to be seen in the office in 6 weeks for follow-up visit. She is to call for temperature of 101 degrees or higher, heavy vaginal bleeding, burning with urination, increased redness, drainage or pain from her incision, calf tenderness or any other concerns.
== END 2017-06-18 14:05 | disposition home or self-care (01) | DRG 766 ==
LOC: C.LD 07:11 → C.MS4N 14:19 → C.OBG 06-17 14:35
PROVIDERS: ADMIT Obstetrics & Gynecology; ATTEND Obstetrics & Gynecology
PROC: 10D00Z1 Extraction of Products of Conception, Low, Open Approach (ICD-10-PCS; principal; 2017-06-15 09:00)
DX: O65.5 Obstructed labor due to abnormality of maternal pelvic organs (principal); O09.513 Supervision of elderly primigravida, third trimester; O34.13 Maternal care for benign tumor of corpus uteri, third trimester; O99.350 Diseases of the nervous system complicating pregnancy, unspecified trimester; O99.280 Endocrine, nutritional and metabolic diseases complicating pregnancy, unspecified trimester; O75.89 Other specified complications of labor and delivery; O99.824 Streptococcus B carrier state complicating childbirth; G44.209 Tension-type headache, unspecified, not intractable; E28.2 Polycystic ovarian syndrome; Z37.0 Single live birth; Z3A.36 36 weeks gestation of pregnancy

== ENCOUNTER 2017-06-21 12:48 | Emergency (ER) | payer OTHER ==
[~2017-06-21] VITALS: Ht 157.5 cm; Wt 81.4 kg
[~2017-06-21 12:48] MED LIST changes: -BCPILLS PO; -BUPRTAB51 PO; -CEFAZOLIN IV 2,000 MG in DEXTROSE 5% 50ML IV SCH; -CITRIC ACID/SODIUM CITRATE 15 ML UDC PO SCH; -DIVA500T59 PO; -FAMO10TA10 PO; -LACTATED RINGER'S 1000ML 1,000 ML IV SCH; +MTR600X PO; -ZINC1CAP PO
[2017-06-21 12:54] VITALS: TEMP 37.2; Ht 157.5 cm; Wt 81.4 kg
[2017-06-21] MEDS ORDERED: ACET-1311 PO (13:21)
[2017-06-21] MEDS ORDERED: IBUP-1427 PO (13:21)
[2017-06-21] MEDS ORDERED: SODIUM CHLORIDE 0.9% 1000ML 1,000 ML IV STA (13:43)
[2017-06-21] MEDS ORDERED: CAFFEINE CITRATE 500 MG in NS 1000ML IV ONE (14:00)
[2017-06-21 14:12] LABS: BASO % 0.1 %; BASO ABS # 0.01 K/uL (0-0.2); COMPLETE YES; EOS % 1.2 %; HEMATOCRIT 35.3 % (37-47); IG% 0.4 %; LYMPH % 23.5 %; LYMPH ABS # 2.26 K/uL (1.2-3.4); MEAN CELL VOLUME 87.2 fL (80-100); MEAN CORPUSCULAR HEMOGLOBIN 27.7 pg (25-34); MEAN CORPUSCULAR HGB CONC 31.7 g/dl (32-36); MEAN PLATELET VOLUME 9.4 fL (7.4-10.4); MONO % 6.7 %; NEUT % 68.1 %; PLATELET COUNT 381 K/uL (130-400); RED BLOOD COUNT 4.05 M/uL (4.2-5.4); WHITE BLOOD COUNT 9.61 K/uL (4.8-10.8)
--- NOTE | 2017-06-21 14:21 | DIAGNOSTIC IMAGING REPORT ---
C-SPINE ROUTINE 4 OR 5 VIEWS HISTORY: Trauma eval for fx COMPARISON: None. FINDINGS: The cervical spine is visualized from C1 through the superior endplate of T1. There is no fracture. No subluxation. Disc spaces are preserved. Prevertebral soft tissues and the atlantodens interval are intact. IMPRESSION: No fracture or subluxation within the cervical spine. The above report was generated using voice recognition software. It may contain grammatical, syntax or spelling errors. Electronically signed by: Reagan Ochoa M.D. 06/21/2017 2:19 PM Dictated Date/Time: 06/21/2017 2:18 PM
[2017-06-21 14:31] LABS: CALCIUM 8.6 mg/dl (8.5-10.1); CREATININE 0.72 mg/dl (0.60-1.20); POTASSIUM 3.4 mmol/L (3.5-5.1)
[2017-06-21 18:01] VITALS: BP 118/69; PULSE 76; O2SAT 99
--- NOTE | 2017-06-21 18:13 | EMERGENCY ROOM VISIT NOTE ---
History Report prepared by Brady: Dianne Rodney Under the Supervision of: Dr. Sumit Trevino M.D. First contact with patient: 13:34 Chief Complaint: NECK PAIN Stated Complaint: SEVERE NECK PAIN POST ON 06/15/17 History of Present Illness The patient is a 37 year old female who presents to the Emergency Room with complaints of persistent neck pain starting 6 days ago. The patient had a C section 6 days ago. She had a spinal at that time. 8 hours after the procedure, she started to have neck pain at the base of her skull and down the sides of her neck. She also has pain down the spine to her shoulders. The pain is improved when she is lying down. When lying down, she has full range of motion and is just slightly sore. The pain worsens when she is vertical. When vertical , she has a shooting throbbing pain in her neck and her shoulders feel tight. At first, she was told by her doctor during recovery from her procedure that it might be a spinal headache, but her headache resolved. She was told it might be musculoskeletal. Her shoulders feel tight. Her symptoms feel improved by heat. She last tried taking caffeine a few days ago which might have helped. She was feeling improved yesterday, but worsened again this morning. She was given Percocet which she has not been taking as she is breast feeding and because it makes her vomit. She is having some mild headaches at times. She has back pain which she attributes to the injection. She denies any fever, numbness, weakness , vomiting, or abdominal pain. She denies any recent falls. Source of History: patient Onset: 6 days ago Position: neck Quality: other (shooting, throbbing) Timing: other (persistent) Modifying Factors (Worsening): other (sitting up) Modifying Factors (Relieving): other (lying down) Associated Symptoms: + headache, + back pain, No fevers, No vomiting, No abdominal pain, No weakness, No numbness Note: Pt reports shoulder pain. Review of Systems See HPI for pertinent positives & negatives. A total of 10 systems reviewed and were otherwise negative. Past Medical & Surgical Medical Problems: (1) Appendectomy (2) Myomectomy Surgical Problems: (1) H/O section Family History Cancer Diabetes mellitus Heart disease Hypertension Seizures Social History Smoking Status: Never Smoker Alcohol Use: none Drug Use: none Marital Status: Housing Status: lives with family Occupation Status: employed Current/Historical Medications Scheduled PRN Acetaminophen (Tylenol), 650 MG PO UD PRN for Pain Ibuprofen Tab (Motrin), 600 MG PO Q6H PRN for Pain Allergies Uncoded Allergies: NARCOTICS (Adverse Reaction, Unknown, SENSITIVITY, 06/15/17) NAUSEA AND DIZZINESS Physical Exam Vital Signs Date Time Temp Pulse Resp B/P (MAP) Pulse Ox O2 Delivery O2 Flow Rate FiO2 06/21/17 18:01 76 20 118/69 99 06/21/17 16:31 75 16 127/77 99 Room Air 06/21/17 15:28 58 20 136/86 99 Room Air 06/21/17 14:14 61 20 134/85 99 Room Air 06/21/17 12:54 37.2 106 20 130/85 99 Room Air Physical Exam Constitutional: Vital signs reviewed. Eyes: Pupils are equal round reactive to light. Conjunctiva are noninjected. ENT: Pharynx is clear without erythema or exudate. Mucous membranes are moist. Mild upper cervical spine tenderness without step off. Respiratory: Clear to auscultation bilaterally. Breath sounds are equal bilaterally. Cardiovascular: Regular rate and rhythm. No rubs or gallops. GI: Soft, nondistended and nontender. Bowel sounds are present. Healing lower abdominal incision without signs of infection or dehiscence. Musculoskeletal: No peripheral edema. Integumentary: No cyanosis. Neurological: The patient is awake and alert. Cranial nerves II-XII are intact. Motor is 5 out of 5 all extremities. Sensation is intact to light touch all extremities. Normal speech. No pronator drift. Psychiatric: Normal affect. Medical Decision & Procedures ER Provider Diagnostic Interpretation: X-ray results as stated below per interpretation by me and the radiologist: C-SPINE ROUTINE 4 OR 5 VIEWS HISTORY: Trauma eval for fx COMPARISON: None. FINDINGS: The cervical spine is visualized from C1 through the superior endplate of T1. There is no fracture. No subluxation. Disc spaces are preserved. Prevertebral soft tissues and the atlantodens interval are intact. IMPRESSION: No fracture or subluxation within the cervical spine. The above report was generated using voice recognition software. It may contain grammatical, syntax or spelling errors. Electronically signed by: Reagan Ochoa M.D. 06/21/2017 2:19 PM Dictated Date/Time: 06/21/2017 2:18 PM Laboratory Results 06/21/17 13:50 Red Blood Count 4.05, Mean Corpuscular Volume 87.2, Mean Corpuscular Hemoglobin 27.7, Mean Corpuscular Hemoglobin Concent 31.7, Mean Platelet Volume 9.4, Neutrophils (%) (Auto) 68.1, Lymphocytes (%) (Auto) 23.5, Monocytes (%) (Auto) 6.7, Eosinophils (%) (Auto) 1.2, Basophils (%) (Auto) 0.1, Neutrophils # (Auto) 6.54, Lymphocytes # (Auto) 2.26, Monocytes # (Auto) 0.64, Eosinophils # (Auto) 0.12, Basophils # (Auto) 0.01 06/21/17 13:50 Test 06/21/17 13:50 White Blood Count 9.61 K/uL (4.8-10.8) Red Blood Count 4.05 M/uL (4.2-5.4) Hemoglobin 11.2 g/dL (12.0-16.0) Hematocrit 35.3 % (37-47) Mean Corpuscular Volume 87.2 fL (80-100) Mean Corpuscular Hemoglobin 27.7 pg (25-34) Mean Corpuscular Hemoglobin Concent 31.7 g/dl (32-36) Platelet Count 381 K/uL (130-400) Mean Platelet Volume 9.4 fL (7.4-10.4) Neutrophils (%) (Auto) 68.1 % Lymphocytes (%) (Auto) 23.5 % Monocytes (%) (Auto) 6.7 % Eosinophils (%) (Auto) 1.2 % Basophils (%) (Auto) 0.1 % Neutrophils # (Auto) 6.54 K/uL (1.4-6.5) Lymphocytes # (Auto) 2.26 K/uL (1.2-3.4) Monocytes # (Auto) 0.64 K/uL (0.11-0.59) Eosinophils # (Auto) 0.12 K/uL (0-0.5) Basophils # (Auto) 0.01 K/uL (0-0.2) RDW Standard Deviation 44.2 fL (36.4-46.3) RDW Coefficient of Variation 14.0 % (11.5-14.5) Immature Granulocyte % (Auto) 0.4 % Immature Granulocyte # (Auto) 0.04 K/uL (0.00-0.02) Anion Gap 7.0 mmol/L (3-11) Est Creatinine Clear Calc Drug Dose 105.8 ml/min Estimated GFR () 124.0 Estimated GFR (Non- 107.0 BUN/Creatinine Ratio 20.0 (10-20) Calcium Level 8.6 mg/dl (8.5-10.1) Laboratory results as reviewed by me. Medications Administered Medications (Trade) Dose Ordered Sig/Mukul Route Start Time Stop Time Status Last Admin Dose Admin Caffeine Citrated 500 mg/Sodium Chloride 1,025 ml @ 512.5 mls/ hr NOW ONCE IV 06/21/17 14:00 06/21/17 15:59 DC 06/21/17 14:14 512.5 MLS/HR ED Course 1336: The patient was evaluated in room C12B. A complete history and physical exam was performed. 1400: Caffeine Citrate 500 mg/Sodium Chloride 1025 ml @ 512.5 mls/hr IV. 1510: I reevaluated the patient. She is still having significant pain with sitting up. 1515: I discussed the patient's case with Dr. Hernández, [facility] anesthesiology. Someone from anesthesiology will come to evaluate the patient. 1625: I reevaluated the patient. She still has a headache with sitting up. Anesthesia saw her and will come back to reassess her. 1708: I reevaluated the patient. Dr. eVrdin from anesthesiology is talking to her about blood patch. 1738: I reevaluated the patient. She decided not to have the blood patch. I discussed the results with her. She verbalized agreement of the treatment plan. She was discharged home. Medical Decision This is a 37-year-old female who presents with neck pain and headache after spinal anesthesia. Differential diagnosis includes strain, post-spinal tap headache, cervical disc disease, migraine headache, infection. I did perform a limited focused review of portions of the patient's old chart on the electronic medical record. The patient just underwent primary low transverse cervical C section on the (6 days ago). I did evaluate the patient as noted above. The patient is presenting with neck and lower head pain after having spinal anesthesia for . She states the pain is worse when she stands up and better when she lies down. She is neurologically intact. She is afebrile. Her symptoms seem consistent with a post-spinal headache. IV access was established. I did order and review the patient's blood work as noted in the electronic medical record. I did treat the patient with IV caffeine and normal saline. She had minimal relief of her symptoms. I did consult anesthesia. The anesthesiologist did assess the patient in the emergency department and discussed blood patch with her. After discussion she decided that she would forego the blood patch and would continue fluids and caffeine at home. The patient was discharged in good condition. She was advised to return should she have any worsening symptoms. Medication Reconcilliation Current Medication List: was personally reviewed by me Blood Pressure Screening Patient's blood pressure: Elevated blood pressure Blood pressure disposition: Referred to PCP Consults Time Called: 151 Consulting Physician: Dr. Hernández, [facility] anesthesiology Returned Call: 1515 I discussed the patient's case with him. Someone from anesthesiology will come to evaluate the patient. Impression Primary Impression: Spinal puncture headache Additional Impression: Neck pain Scribe Attestation The scribe's documentation has been prepared under my direct and personally reviewed by me in its entirety. I confirm that the note above accurately reflects all work, treatment, procedures, and medical decision making performed by me. Departure Information Dispostion Home / Self-Care Referrals [facility] (PCP) Forms HOME CARE DOCUMENTATION FORM, IMPORTANT VISIT INFORMATION, WORK / SCHOOL INSTRUCTIONS Patient Instructions ED Headache Post Spinal Tap No [facility], My [facility] Additional Instructions You have been examined and treated today on an emergency basis only. This is not a substitute for, or an effort to provide, complete comprehensive medical care. It is impossible to recognize and treat all injuries or illnesses in a single emergency department visit. It is therefore important that you follow up closely with your physician. Call as soon as possible for an appointment. Return for worsening symptoms or if you develop fever, numbness or weakness on one side of your body, difficulties with your speech or walking, or any other concerning symptoms. Problem Qualifiers
--- NOTE | 2017-06-21 18:13 | Anesthesiology Progress Note ---
Anesthesia Progress Note Date of Service Jun 21, 2017. Progress Notes 37 y.o. female had C.section 06/15/17 under spinal anesthesia. Developed headache and meningismus soon after and was discharged home. Symptoms have waxed and waned but worsened today and pt presented to ED for evaluation. Pt described pain as primarily in neck and shoulders, ranging from mild to moderate. It is relieved by recumbency, and worsened and associated with headache with activity. I discussed with pt that symptoms are consistent with diagnosis of post-dural puncture headache. I described to pt conservative vs. aggressive management with blood patch. After thorough discussion of risk vs benefit of blood patch, pt opted to continue conservative treatment for a few more days. I told her if symptoms persist or worsen, she should contact us directly and may have procedure done thru Same Day Surgery.
== END 2017-06-21 18:03 | disposition home or self-care (01) ==
LOC: C.EDB 12:49 → C.EDC 18:03
DX: G97.1 Other reaction to spinal and lumbar puncture (principal); M54.2 Cervicalgia; Z80.9 Family history of malignant neoplasm, unspecified; Z83.3 Family history of diabetes mellitus; Z82.49 Family history of ischemic heart disease and other diseases of the circulatory system; Z82.0 Family history of epilepsy and other diseases of the nervous system

== ENCOUNTER → 2017-07-30 | Outpatient (CLI) | payer OTHER ==
[~2017-07-30] MED LIST changes: +ACET-1311 PO; -CALC500C3 PO; -CALC500T68 PO; +IBUP-1427 PO; -MTR600X PO; -PRENTAB26 PO
[2017-07-30 14:23] LABS: BASO % 0.4 %; BASO ABS # 0.03 K/uL (0-0.2); COMPLETE YES; EOS % 1.2 %; HEMATOCRIT 39.2 % (37-47); IG% 0.1 %; LYMPH % 32.9 %; LYMPH ABS # 2.39 K/uL (1.2-3.4); MEAN CELL VOLUME 84.8 fL (80-100); MEAN CORPUSCULAR HEMOGLOBIN 27.7 pg (25-34); MEAN CORPUSCULAR HGB CONC 32.7 g/dl (32-36); MEAN PLATELET VOLUME 10.1 fL (7.4-10.4); MONO % 9.4 %; PLATELET COUNT 339 K/uL (130-400); RED BLOOD COUNT 4.62 M/uL (4.2-5.4); WHITE BLOOD COUNT 7.27 K/uL (4.8-10.8)
[2017-07-30 16:53] LABS: URINE APPEARANCE CLEAR (CLEAR); URINE BILIRUBIN NEG (NEG); URINE COLOR YELLOW; URINE EPITHELIAL CELL AUTO 20-30 /lpf (0-5); URINE NITRITE NEG (NEG); URINE SPECIFIC GRAVITY 1.018 (1.000-1.030); UROBILINOGEN NEG (NEG); ZZUR CULT IF INDIC CLEAN CATCH NO
[2017-07-30 16:54] LABS: MANUAL MICROSCOPIC REQUIRED? NO; REVIEW REQ? NO
== END | disposition home or self-care (01) ==
LOC: C.LAB1850 13:33
PROVIDERS: ATTEND Obstetrics & Gynecology
DX: R35.0 Frequency of micturition (principal); R53.83 Other fatigue

== ENCOUNTER 2019-02-21 05:23 | Inpatient (IN) ==
--- NOTE | 2019-02-19 12:42 | PAT Medication Instructions ---
Medication Instructions Date of Service February 19, 2019 Home Medications Ca carb-Ca gluc-Mg ox-Mg gluco [Calcium Magnesium] 1 tab PO DAILY PNV cmb#95-ferrous fumarate-FA [] 1 - 2 tab PO BID docusate sodium [Colace] 100 mg PO BID fish,bora,flax oils-om3,6,9no1 [[place] 3-6-9] 1 cap PO BID polyethylene glycol 3350 [Miralax] 17 g PO DAILY zinc 50 mg PO DAILY STOP taking 2 weeks before surgery (or as soon as possible if surgery is within 2 weeks) fish,bora,flax oils-om3,6,9no1 [[place] 3-6-9] 1 cap PO BID DO NOT take the morning of surgery Ca carb-Ca gluc-Mg ox-Mg gluco [Calcium Magnesium] 1 tab PO DAILY PNV cmb#95-ferrous fumarate-FA [] 1 - 2 tab PO BID docusate sodium [Colace] 100 mg PO BID polyethylene glycol 3350 [Miralax] 17 g PO DAILY zinc 50 mg PO DAILY Take evening before surgery PNV cmb#95-ferrous fumarate-FA [] 1 - 2 tab PO BID docusate sodium [Colace] 100 mg PO BID Other Notes If you have any questions please call us at [phone] or [phone] or [phone] or [phone]
--- NOTE | 2019-02-20 09:32 | Anesthesiology Consultation ---
Date of Service February 20, 2019 Assessment & Plan (1) Encounter for pre-operative examination: c/s: 06/15/17: SAB x 5 attempts ("difficult 2/2 to bone") at L3-L4 at [facility]. Developed headache and meningismus soon after and was discharged home. Symptoms have waxed and waned but worsened and pt presented to ED for evaluation. Blood patch vs. conservative management discussed and pt opted to continue conservative treatment (fluids and caffeine treatment at home). Chart Review Chart Review: Acceptable Risk for Surgery (pending labs AM DOS) and Patient seen in Pre Admission Testing Teaching & Discussion Pre-Anesthesia Teaching/Discussion Notes: Instructed NPO after midnight before surgery,except medications with 15 cc of water. Medication instructions provided according to the PAT guidelines. History Surgery Operation Date: 02/21/19 07:30 Proposed Procedures p Section - Madeline Sexton MD s with Tubal Ligation - Madeline Sexton MD Height/Weight Height: 5 ft 2 in Weight: 82.4 kg Allergies Allergy/AdvReac Type Severity Reaction Status Date / Time NARCOTICS AdvReac Unknown SENSITIVITY Uncoded 02/20/19 09:40 /NAUSEA/DIZ ZINESS/VOMI TING Medications Home Medications Medication Instructions Recorded Confirmed Last Taken Ca carb-Ca gluc-Mg ox-Mg gluco 1 tab PO DAILY 02/13/19 02/13/19 Unknown [Calcium Magnesium] PNV cmb#95-ferrous fumarate-FA 1 - 2 tab PO BID 02/13/19 02/13/19 02/13/19 [] docusate sodium [Colace] 100 mg PO BID 02/13/19 02/13/19 Unknown fish,bora,flax oils-om3,6,9no1 1 cap PO BID 02/13/19 02/13/19 Unknown [[place] 3-6-9] polyethylene glycol 3350 [Miralax] 17 g PO DAILY 02/13/19 02/13/19 Unknown zinc 50 mg PO DAILY 02/13/19 02/13/19 Unknown Past Medical History Medical History History of anxiety History of depression TMJ (temporomandibular joint disorder) NEVER LOCKED Past Surgical History Surgical History History of anesthesia reaction SPINAL HEADACHE WITH PREVIOUS C/S C/S: 06/15/17: SAB X 5 attempts ("difficult 2/2 to bone") at L3-L4 at [facility]. Developed headache and meningismus soon after and was discharged home. Symptoms have waxed and waned but worsened and pt presented to ED for evaluation. Blood patch vs. conservative management discussed and pt opted to continue conservative treatment (fluids and caffeine treatment at home). History of appendectomy History of section History of myomectomy History of wisdom tooth extraction Nausea and vomiting after administration of anesthetic agent Past Anesthesia History No Family Hx of Anesthesia Complications and Other c/s: 06/15/17: SAB x 5 attempts ("difficult 2/2 to bone") at L3-L4 at [facility]. Developed headache and meningismus soon after and was discharged home. Symptoms have waxed and waned but worsened and pt presented to ED for evaluation. Blood patch vs. conservative management discussed and pt opted to continue conservative treatment (fluids and caffeine treatment at home). History of PONV History of PONV and Hx of Motion Sickness Social History Smoking Status: Never smoker Do You Dip or Chew Tobacco: No Hx Alcohol Use: No (PRIOR TO CASUAL DRINKING, NONE DURING ) Hx Substance Use: No substance use type: does not use Review of Systems Patient reports reflux with . Patient denies chest pain, shortness of breath, cough, wheezing, palpitations. Physical Exam Vital Signs VITALS BP 102/66 P 65 TEMP 98.4 SP02 97%RA RESP 16 PHYSICAL Full neck and c-spine range of motion. Full TMJ range of motion. TMD 3 finger breaths Mallampati Score 2 Dentition: intact, crown on molar Lungs: clear throughout to auscultation Cardiac: regular rate and rhythm, no murmurs noted Spine: normal Extremities: no edema
[~2019-02-21 05:23] MED LIST changes: -ACET-1311 PO; +BETAMETH SOD PHOS/ACETATE IA 6 MG/ML ONE; -IBUP-1427 PO
[2019-02-21 05:58] LABS: Basophils # (auto) 0.02 K/uL (0-0.2); Basophils % (auto) 0.2 %; Eosinophils # (auto) 0.06 K/uL (0-0.5); Eosinophils % (auto) 0.5 %; Hematocrit (blood only) 34.6 % (37-47); Hemoglobin 11.7 g/dL (12.0-16.0); Immature Granulocytes # (auto) 0.08 K/uL (0.00-0.02); Immature Granulocytes % (auto) 0.7 %; Lymphocytes # (auto) 2.39 K/uL (1.2-3.4); Lymphocytes % (auto) 19.9 %; Mean Corpuscular Volume 86.3 fL (80-100); Mean Platelet Volume 10.7 fL (7.4-10.4); Monocytes # (auto) 1.05 K/uL (0.11-0.59); Monocytes % (auto) 8.7 %; Neutrophils # (auto) 8.41 K/uL (1.4-6.5); Platelet Count 181 K/uL (130-400); RDW Coefficient of Variation 14.6 % (11.5-14.5); Red Blood Count 4.01 M/uL (4.2-5.4); White Blood Count 12.01 K/uL (4.8-10.8)
[2019-02-21 05:59] LABS: Mean Corpuscular Hgb Conc 33.8 g/dL (32-36)
[2019-02-21] MEDS ORDERED: LACTATED RINGER'S 1,000 ML IV SCH ×2 (06:00→06:29)
[2019-02-21] MEDS ORDERED: CEFAZOLIN 2000MG 2,000 MG/15 ML SYR IV SCH (06:00)
[2019-02-21] MEDS ORDERED: CITRIC ACID/SODIUM CITRATE 15 ML UDC PO SCH ×2 (06:00)
[2019-02-21 06:17] LABS: Appearance Urine Clear (Clear); Bilirubin Urine Negative (Negative); Blood Urine Negative (Negative); Color Urine Yellow; Glucose Urine UA Negative (Negative); Ketones Urine Negative (Negative); Leukocyte Esterase Urine Negative (Negative); Nitrite Urine Negative (Negative); Protein Urine Negative (Negative); Specific Gravity Urine 1.016 (1.000-1.030); Urobilinogen Urine Negative (Negative); pH Urine 7.5 (4.5-7.5)
[2019-02-21] MEDS ORDERED: fentaNYL citrate 100 MCG/2 ML VIAL ONE (07:16)
[2019-02-21] MEDS ORDERED: MoRPHine SULFATE PF 1 MG/ML 10 ML AMP/VIAL ONE (07:16)
[2019-02-21] MEDS ORDERED: OXYTOCIN 10 UNITS/ML VIAL ONE ×2 (07:17→08:31)
[2019-02-21] MEDS ORDERED: ONDANSETRON INJ 2 MG/ML 2 ML VIAL ONE (07:56)
[2019-02-21] MEDS ORDERED: DiphenhydrAMINE HCL 50 MG/ML VIAL IV PRN (07:58)
[2019-02-21] MEDS ORDERED: ONDANSETRON INJ 2 MG/ML 2 ML VIAL IV PRN (07:58)
[2019-02-21] MEDS ORDERED: ePHEDrine sulfate 50 MG/ML AMP IV PRN (07:58)
[2019-02-21] MEDS ORDERED: NALOXONE HCL 1 MG in SODIUM CHLORIDE 0.9% 1000ML 1,000 ML IV PRN (07:58)
[2019-02-21] MEDS ORDERED: LACTATED RINGER'S 500 ML IV PRN (07:58)
[2019-02-21] MEDS ORDERED: NALOXONE HCL 0.08 MG in SYRINGE 1.8 ML IV PRN (07:58)
[2019-02-21] MEDS ORDERED: PHENYLEPHRINE 100MCG/ML 5ML SYR ONE (07:58)
[2019-02-21] MEDS ORDERED: NALOXONE HCL 0.4 MG/1 ML VIAL/CARP IV PRN (07:58)
[2019-02-21] MEDS ORDERED: NALBUPHINE HCL INJ 10 MG/ML AMP IV PRN (07:58)
[2019-02-21] MEDS ORDERED: MoRPHine SULFATE PF 1 MG/ML 10 ML AMP/VIAL INT SPINAL ONE (07:58)
[2019-02-21] MEDS ORDERED: HYDROmorphone INJ 0.5 MG/0.5 ML SYR IV PRN (07:58)
[2019-02-21] MEDS ORDERED: NO NARCOTICS OR SEDATIVES SCH (08:00)
[2019-02-21] MEDS ORDERED: SODIUM CHLORIDE 0.9% 1000ML 1,000 ML IV SCH (08:00)
--- NOTE | 2019-02-21 08:24 | History and Physical Report ---
DATE OF ADMISSION: 02/21/2019 CHIEF COMPLAINT: In need of section. HISTORY OF PRESENT ILLNESS: This is a 38-year-old G2, P1-0-0-1, who presents today at 36 weeks and 6 days with a talbert intrauterine . Her is complicated by bipolar disorder, classic migraine with aura, history of eating disorder, advanced maternal age, generalized anxiety, maternal scar from prior delivery and uterine fibroids. Of note, the patient has undergone previous uterine myomectomy with entry into the uterine cavity. For this reason, along with her history of a prior section, in consultation with maternal medicine, the decision was made that this patient should be delivered by a section earlier than usual and specifically today at 36 and 6. Please note, the patient has undergone administration of betamethasone twice, once Sunday, once Sunday and today is currently . ALLERGIES: VICODIN AND PERCOCET, WHICH CAUSE VOMITING. MEDICATIONS: Calcium, magnesium, , and omega-3, zinc, vitamin B6, Colace and MiraLax as needed. IMMUNIZATION HISTORY: The patient has had Tdap during this and has had MMR and is known rubella immune. OBSTETRIC HISTORY: The patient has 1 prior in 2017. This was delivered by section here at [facility] for a 6-pound 14-ounce male at 36 weeks and 5 days, again because of her history of prior myomectomy. PAST MEDICAL HISTORY: The patient does have a heart murmur and a history of migraines. She has a history of anxiety and depression and carries a diagnosis of bipolar. The patient had a prior myomectomy and she also had cervical cryosurgery in 2002. She has had a chromopertubation. She has had an appendectomy, wisdom tooth removal, one and 1 myomectomy as previously mentioned. She has had a history of chickenpox in childhood and a known history of fibroids and endometriosis. SOCIAL HISTORY: Negative x3. Lives with spouse, son and cat. FAMILY HISTORY: Noncontributory. PHYSICAL EXAMINATION: VITAL SIGNS: The patient's weight is 179.2 pounds. The patient's current heart tones are 135, moderate variability, positive accels, no decels. Her toco shows no activity. Most recent blood pressure 112/69, pulse 87, respirations 18, temperature 36.9, O2 sat 100% on room air. GENERAL: The patient is alert, in no distress. ABDOMEN: She is gravid, nontender. Cervical vaginal exam is deferred at this time. EXTREMITIES: Without abnormalities and she is wearing SCDs in preparation for section. ASSESSMENT AND PLAN: Kimberley Rivera is a 38-year-old G2, P1 with a history of prior uterine myomectomy and section complicating a talbert intrauterine for which she is going to be delivered by at 36 and 6. She will be administered preoperative antibiotics and procedure is scheduled for this morning.
[2019-02-21] MEDS ORDERED: SUPERCREAM 0.870% 15 GM JAR EXT PRN (08:40)
[2019-02-21] MEDS ORDERED: DIPHTHERIA/TETANUS/PERTUSSIS 0.5 ML SYR/VIAL IM ONE (08:40)
[2019-02-21] MEDS ORDERED: BENZOCAINE 20% AER SPR 82.5 GM CAN EXT PRN (08:40)
[2019-02-21] MEDS ORDERED: HYDROCORTISONE ACETATE 25 MG SUPP PR PRN (08:40)
--- NOTE | 2019-02-21 08:46 | Operative Report ---
Post Operative Report Pre & Post Diagnosis Operation Date: 02/21/19 07:30 Pre-Op Diagnosis: 1) talbert intrauterine 2) prior uterine myomectomy 3) prior caesarean section Post-Op Diagnosis: same as preop Procedure Operation Date: 02/21/19 07:30 Actual Procedures p Section - Madeline Sexton MD s with Tubal Ligation - Madeline Sexton MD Surgeon Madeline Sexton MD [place] Estimated Blood Loss 600 Findings Consistent with Post-Op Diagnosis Specimens Portion R and portion L fallopian tube Placenta Cord blood Drains [place] Anesthesia Type Spinal Complications none Disposition Accompanied Patient To Recovery: Yes Disposition: L&D Description of Procedure The patient was brought to the operating room and placed on the table in the supine position with a leftward tilt, then prepped and draped in standard sterile fashion. A hard time out was taken prior to proceeding. A pfannensteil incision was created sharply and carried down to the fascia using bovie electrocautery. The fascia was nicked and then extended using ortez scissors. The edges of the fascia were grasped with Veena clamps and elevated, then sharply and bluntly dissected off the underlying rectus. The midline of the rectus was identified and bluntly . The peritoneum was bluntly entered, and this entry was extended using pressure from the surgeon's hands. The bladder retractor was placed and the lower uterine segment was examined and found to be well developed. A bladder flap was created and the retractor was replaced behind this flap to protect the bladder. A transverse lower uterine incision was then created, with final entry to the uterine cavity made in a blunt manner with the surgeon's finger. Clear amniotic fluid was encountered. The head was elevated to the incision and delivered using mild fundal pressure. The cord was doubly clamped and cut, then the vigorous was taken to the warmer for motor coach operator care. The placenta was manually extracted, then the uterus was gently exteriorized from the maternal abdomen. The cavity was cleared of clot and debris using a dry lap sponge. The angles of the incision were identified with allis clamps, and the hysterotomy was then repaired in running locked fashion using 0-vicryl suture, followed by a second imbricating layer. The tubes and ovaries were examined and found to be normal bilaterally. After confirming consent, each tube was ligated with a double stick-tie of 0-chromic to create a knuckle of tube, then the isolated portion of tube was excised. The posterior gutter was irrigated and cleared of clot and debris. The uterus was then gently re-internalized to the abdomen. Lateral gutters were cleared of clot and debris using a damp lap sponge, and a final exam of the hysterotomy revealed good hemostasis. The rectus muscles were reapproximated with a running 0-chromic suture. The angle of the fascia was grasped with a Veena clamp and the fascia was then repaired in running non- locked fashion with 1-vicryl suture. At the completion of repair, the fascia was examined and found to be free of any defect. The subcutaneous tissue was copiously irrigated and then reapproximated using 3-0 chromic. The skin was then closed using 4-0 monocryl in a running subcuticular fashion and a dermabond dressing was applied. The vallejo was noted to be draining clear yellow urine as the patient was transferred back to her recovery room. I attest to the content of the Intraoperative Record and any orders documented therein. Any exceptions are noted below.
--- NOTE | 2019-02-21 08:56 | Anesthesiology Progress Note ---
Date of Service February 21, 2019 Anesthesia Post Procedure Vital Signs Vital Signs: Temp Pulse Resp BP Pulse Ox 02/21/19 08:53 63 98 02/21/19 08:48 59 L 100/50 L 98 02/21/19 07:22 87 100 02/21/19 07:17 74 100 02/21/19 07:12 80 100 02/21/19 05:52 36.9 C 78 18 112/69 02/21/19 05:41 36.9 C 78 18 112/69 Transfer of Care Handoff Completed per policy Notes Mental Status: alert / awake / arousable Patient Amnestic to Procedure: Yes Nausea / Vomiting: adequately controlled Pain: adequately controlled Airway Patency, RR, SpO2: stable & adequate BP & HR: stable & adequate Hydration State: stable & adequate Neuraxial Anesthesia: was administered and sensory block is resolving Anesthetic Complications: no major complications apparent and Pt Satisfied with anesthetic care
[2019-02-21] MEDS ORDERED: OXYTOCIN 30 UNITS in LACTATED RINGER'S 1,000 ML IV SCH (09:00)
[2019-02-21] MEDS ORDERED: NON-FORMULARY MEDICATION (Zinc 50 MG) PO SCH (11:46)
[2019-02-21] MEDS ORDERED: NON-FORMULARY MEDICATION (Ca Carb-Ca Gluc-Mg Ox-Mg Gluco [Calcium Magnesium] 1 TAB) PO SCH (11:46)
[2019-02-21] MEDS: KETOROLAC 30 MG/ML VIAL IV PRN ×2 (11:47→20:39)
[2019-02-21] MEDS: DOCUSATE SODIUM 100 MG CAP PO SCH ×3 (13:51→20:47)
[2019-02-21] MEDS: FERROUS SULFATE 325 MG TAB PO SCH (13:52)
[2019-02-21] MEDS: PRENATAL VITAMIN 1 TAB PO SCH (13:52)
[2019-02-21] MEDS: SIMETHICONE 80 MG CHEW PO SCH ×3 (13:52→20:46)
[2019-02-21] MEDS: POLYETHYLENE (MIRALAX) 17 GM PACK PO SCH (13:53)
[2019-02-21] MEDS: OMEGA-3 (PURIFIED FISH OIL) 1 GM CAP PO SCH ×2 (13:53→20:40)
[2019-02-21] MEDS ORDERED: Nursing to Pharmacy Communication ONE (16:24)
[2019-02-22] MEDS ORDERED: PROMETHAZINE HCL 25 MG in SODIUM CHLORIDE 0.9% 50 ML IV PRN (01:58)
[2019-02-22] MEDS ORDERED: KETOROLAC 30 MG/ML VIAL IV PRN (01:58)
[2019-02-22] MEDS ORDERED: DiphenhydrAMINE HCL 50 MG/ML VIAL IV PRN (01:58)
[2019-02-22] MEDS ORDERED: OXYCODONE/ACETAMINOPHEN 5mg/325mg TAB PO PRN (01:58)
[2019-02-22] MEDS ORDERED: ONDANSETRON INJ 2 MG/ML 2 ML VIAL IV PRN (01:58)
[2019-02-22] MEDS ORDERED: MEPERIDINE HCL 50 MG/ML CARP IV PRN (01:58)
[2019-02-22] MEDS ORDERED: DC INTRASPINAL MORPHINE ONE (01:58)
[2019-02-22 06:32] LABS: Basophils # (auto) 0.01 K/uL (0-0.2); Basophils % (auto) 0.1 %; Eosinophils # (auto) 0.06 K/uL (0-0.5); Eosinophils % (auto) 0.4 %; Hematocrit (blood only) 32.1 % (37-47); Hemoglobin 10.8 g/dL (12.0-16.0); Immature Granulocytes % (auto) 0.7 %; Lymphocytes # (auto) 1.96 K/uL (1.2-3.4); Mean Corpuscular Hgb Conc 33.6 g/dL (32-36); Mean Corpuscular Volume 87.2 fL (80-100); Mean Platelet Volume 10.8 fL (7.4-10.4); Monocytes # (auto) 1.25 K/uL (0.11-0.59); Monocytes % (auto) 8.3 %; Neutrophils # (auto) 11.69 K/uL (1.4-6.5); Neutrophils % (auto) 77.5 %; Platelet Count 192 K/uL (130-400); RDW Coefficient of Variation 14.7 % (11.5-14.5); RDW Standard Deviation 46.3 fL (36.4-46.3); Red Blood Count 3.68 M/uL (4.2-5.4); White Blood Count 15.07 K/uL (4.8-10.8)
--- NOTE | 2019-02-22 06:55 | Obstetrical Progress Note ---
Date of Service <Orlin Sow MD - Last Filed: 02/22/19 07:04> February 22, 2019 Assessment & Plan <Orlin Sow MD - Last Filed: 02/22/19 07:04> (1) delivery delivered: 38 year old day 1 s/p Repeat LT C/S at 36 weeks and 6 days for previous uterine myomectomy Vital Signs Reviewed and slightly low bp and pulse rate but at patient's baseline and asymptomatic Pain well controlled, incision clean dry and intact Hemoglobin 10.8 Blood type O+, GBS + received antibiotics, Rubella Immune Patient already ambulating up and to bathroom without difficulty encouraged further ambulation Breast feeding going well so far, encouraged further breast feeding Subjective <Orlin Sow MD - Last Filed: 02/22/19 07:04> Ambulation: ambulating normally Voiding: no voiding problems Passing Gas:: Yes Diet Tolerance:: regular diet Lochia:: Small Feeding Type:: breast feeding (through syringe) Constitutional: no fever and no chills Respiratory: no cough and no dyspnea Cardiovascular: no chest pain, no dyspnea and no calf pain Gastrointestinal: + abdominal pain (incisional); no nausea and no vomiting Physical Exam <Orlin Sow MD - Last Filed: 02/22/19 07:04> Vital Signs (Past 24 Hours) Last Vital Signs Temp 36.5 C 02/22/19 02:05 Pulse 58 L 02/22/19 02:05 Resp 18 02/22/19 02:05 BP 111/57 L 02/22/19 02:05 Pulse Ox 100 02/22/19 02:05 Constitutional well developed, well nourished, cooperative and comfortable; no acute distress Respiratory normal respiratory effort, lungs clear to auscultation Cardiovascular Rate/Rhythm: regular rate and regular rhythm Heart Sounds: no click, no gallop, no murmur and no cardiac rub Extremities: no calf tenderness Gastrointestinal (Abdomen) Percussion/Palpation: abdomen soft; abdomen nontender (around uterus) Genitourinary OB Exam Abdomen: + fundal height (2 cm below umbilicus) Fundus: + firm and + tender (Mildly tender) <Madeline Sexton MD - Last Filed: 02/22/19 07:22> Co-Signing Physician Notes I have reviewed the resident's note and examined the patient myself, and agree with the note above. Resident Activity Tracking <Orlin Sow MD - Last Filed: 02/22/19 07:04> Resident Involvement: Resident Care Provided Care Provided: OB Delivery
[2019-02-22] MEDS: IBUPROFEN 600 MG TAB PO PRN ×4 (07:19→20:41)
[2019-02-22] MEDS: ACETAMINOPHEN 325 MG TAB PO PRN ×2 (08:34→14:21)
[2019-02-22] MEDS: PRENATAL VITAMIN 1 TAB PO SCH (08:36)
[2019-02-22] MEDS: DOCUSATE SODIUM 100 MG CAP PO SCH ×3 (08:36→20:41)
[2019-02-22] MEDS: FERROUS SULFATE 325 MG TAB PO SCH (08:36)
[2019-02-22] MEDS: SIMETHICONE 80 MG CHEW PO SCH ×3 (08:36→20:41)
[2019-02-22] MEDS: OMEGA-3 (PURIFIED FISH OIL) 1 GM CAP PO SCH (08:37)
--- NOTE | 2019-02-22 09:46 | Anesthesiology Progress Note ---
Date of Service February 22, 2019 Anesthesia Post Procedure Vital Signs Vital Signs: Temp Pulse Pulse Resp BP BP Pulse Ox 02/22/19 07:20 36.7 C 74 16 118/59 L 98 02/22/19 02:05 36.5 C 58 L 18 111/57 L 100 02/22/19 01:31 18 98 02/22/19 00:39 16 98 02/21/19 23:35 18 100 02/21/19 23:15 36.6 C 65 18 119/58 L 98 02/21/19 22:05 14 95 02/21/19 21:20 16 97 02/21/19 20:40 16 100 02/21/19 19:50 36.5 C 69 16 121/71 100 02/21/19 18:15 16 98 02/21/19 17:15 16 98 02/21/19 16:45 16 98 02/21/19 15:35 34.3 C L 68 16 111/68 99 02/21/19 14:00 15 99 02/21/19 13:13 36.4 C L 65 18 112/60 98 02/21/19 13:00 15 99 02/21/19 12:15 36.2 C L 66 18 105/60 97 02/21/19 12:00 15 99 02/21/19 11:00 36.3 C L 64 16 121/74 99 02/21/19 10:58 66 100 02/21/19 10:57 64 121/74 02/21/19 10:53 75 99 02/21/19 10:48 68 119/70 100 02/21/19 10:43 59 L 100 02/21/19 10:38 62 100 02/21/19 10:33 59 L 100 02/21/19 10:28 63 111/66 100 02/21/19 10:23 62 100 02/21/19 10:18 61 100 02/21/19 10:17 63 109/65 02/21/19 10:15 18 02/21/19 10:13 62 99 02/21/19 10:08 56 L 100 02/21/19 10:07 57 L 111/63 02/21/19 10:03 55 L 100 02/21/19 09:58 59 L 100 02/21/19 09:57 56 L 109/64 02/21/19 09:53 78 100 02/21/19 09:48 52 L 96 02/21/19 09:47 54 L 108/61 94 Pain Intensity Lower Medial Abdomen: Pain Intensity: 6 Transfer of Care Handoff Completed per policy Notes Mental Status: alert / awake / arousable Patient Amnestic to Procedure: Yes Nausea / Vomiting: adequately controlled Pain: adequately controlled Airway Patency, RR, SpO2: stable & adequate BP & HR: stable & adequate Hydration State: stable & adequate Neuraxial Anesthesia: was administered and sensory block is resolving Anesthetic Complications: no major complications apparent
[2019-02-22] MEDS: POLYETHYLENE (MIRALAX) 17 GM PACK PO SCH (12:34)
[2019-02-23] MEDS: IBUPROFEN 600 MG TAB PO PRN ×3 (00:39→12:59)
[2019-02-23] MEDS: ACETAMINOPHEN 325 MG TAB PO PRN ×2 (03:50→14:27)
[2019-02-23 06:51] LABS: Hematocrit (blood only) 32.2 % (37-47); Hemoglobin 10.7 g/dL (12.0-16.0)
--- NOTE | 2019-02-23 07:21 | Obstetrical Progress Note ---
Date of Service February 23, 2019 Postoperative day #2 from section the patient is well she is ambulating passing gas tolerating an oral diet pain medication is controlling her pain well she has no extremity pain she has minimal bleeding Assessment & Plan (1) delivery delivered: Patient considering discharge later today we will arrange for this if she changes her mind may consider tilt tomorrow Physical Exam Vital Signs (Past 24 Hours) Last Vital Signs Temp 36.8 C 02/22/19 23:35 Pulse 96 H 02/22/19 23:35 Resp 18 02/22/19 23:35 BP 124/79 02/22/19 23:35 Pulse Ox 97 02/22/19 16:15 Vital signs are stable she is afebrile chest exam clear abdomen
[2019-02-23] MEDS: DOCUSATE SODIUM 100 MG CAP PO SCH (09:26)
[2019-02-23] MEDS: FERROUS SULFATE 325 MG TAB PO SCH (09:26)
[2019-02-23] MEDS: PRENATAL VITAMIN 1 TAB PO SCH (09:26)
[2019-02-23] MEDS: SIMETHICONE 80 MG CHEW PO SCH ×2 (09:26→12:59)
--- NOTE | 2019-02-26 08:31 | Discharge Summary ---
Date of Service February 26, 2019 Discharge Data Consultations 02/21/19 05:29 Consult Anesthesiology Stat Procedures Performed Operation Date: 02/21/19 07:30 Actual Procedures s with Tubal Ligation - Madeline Sexton MD p Section, delivery of live female child at 0808 - Catherine Michelle MD, [facility] (1) with history of uterine myomectomy: Patient underwent uncomplicated at early term for history of prior uterine surgery. She was discharged at the usual interval after an uncomplicated recovery.
== END 2019-02-23 17:25 | disposition home or self-care (01) | DRG 785 ==
LOC: 4S2 05:23 → EDSTATUS 07:30
PROC: M.PPTLD (2019-02-21 07:30)
DX: N85.8 Other specified noninflammatory disorders of uterus; Z3A.36 36 weeks gestation of pregnancy; O34.29 Maternal care due to uterine scar from other previous surgery; Z37.0 Single live birth; Z79.899 Other long term (current) drug therapy; Z30.2 Encounter for sterilization; O34.219 Maternal care for unspecified type scar from previous cesarean delivery

== ENCOUNTER 2019-03-10 03:11 | Observation (INO) ==
[2019-03-10 03:51] LABS: Basophils # (auto) 0.03 K/uL (0-0.2); Basophils % (auto) 0.2 %; Eosinophils # (auto) 0.11 K/uL (0-0.5); Eosinophils % (auto) 0.8 %; Hematocrit (blood only) 37.4 % (37-47); Hemoglobin 12.3 g/dL (12.0-16.0); Immature Granulocytes # (auto) 0.04 K/uL (0.00-0.02); Immature Granulocytes % (auto) 0.3 %; Lymphocytes # (auto) 1.64 K/uL (1.2-3.4); Lymphocytes % (auto) 12.1 %; Mean Corpuscular Hgb Conc 32.9 g/dL (32-36); Mean Corpuscular Volume 86.8 fL (80-100); Mean Platelet Volume 9.3 fL (7.4-10.4); Monocytes # (auto) 0.65 K/uL (0.11-0.59); Monocytes % (auto) 4.8 %; Neutrophils # (auto) 11.04 K/uL (1.4-6.5); Neutrophils % (auto) 81.8 %; Platelet Count 297 K/uL (130-400); RDW Coefficient of Variation 14.4 % (11.5-14.5); RDW Standard Deviation 46.2 fL (36.4-46.3); Red Blood Count 4.31 M/uL (4.2-5.4); White Blood Count 13.51 K/uL (4.8-10.8)
[2019-03-10] MEDS ORDERED: fentaNYL citrate 100 MCG/2 ML VIAL IV STA (03:52)
[2019-03-10] MEDS ORDERED: ONDANSETRON INJ 2 MG/ML 2 ML VIAL IV STA (03:52)
[2019-03-10] MEDS ORDERED: ACETAMINOPHEN 1,000 MG/100 ML VIAL IV STA (03:52)
[2019-03-10 04:10] LABS: Albumin Level 3.8 gm/dl (3.4-5.0); BUN Creatinine Ratio 26.9 (10-20); Calcium 8.6 mg/dl (8.5-10.1); Creatinine Clr Calc Pharmacy 108.3 ml/min; Est GFR (African American) 129.9; Est GFR (Non-African American) 112.1; Potassium 3.6 mmol/L (3.5-5.1)
[2019-03-10 04:13] LABS: Albumin Globulin Ratio 1.2 (0.9-2); Bilirubin,Total 0.4 mg/dl (0.2-1); Globulin 3.3 gm/dl (2.5-4.0); Total Protein 7.1 gm/dl (6.4-8.2)
[2019-03-10] MEDS ORDERED: GENTAMICIN CONSULT ACTIVE PRN (06:57)
[2019-03-10] MEDS ORDERED: GENTAMICIN SULFATE 300 MG in DEXTROSE 5% 100 ML IV SCH (07:00)
--- NOTE | 2019-03-10 07:24 | Ultrasound Report ---
PELVIC ULTRASOUND CLINICAL HISTORY: bleeding. COMPARISON STUDY: Pelvic ultrasound November 28, 2018. TECHNIQUE: Transabdominal sonography of the pelvis was performed. Transvaginal imaging was deferred in this patient given recent . FINDINGS: Uterus is enlarged, measuring 16.4 x 7.1 x 7.5 cm. The endometrium is thickened, measuring 5.1 cm in thickness. No color flow is identified within the thickened endometrium. Increased echogeni city is noted. This may reflect blood clot. The ovaries are sonographically normal. The right ovary m easures 2 x 1.7 x 1.8 cm and the left ovary measures 3.3 x 1.7 x 2.7 cm. There is color flow within e ach ovary. No adnexal masses are noted. A small amount of free fluid is noted. IMPRESSION: Thickened endometrium which contains echogenic complex material. Given the lack of vascul arity, blood clot is favored. Retained products of conception could appear similar. Endometritis is c onsidered less likely given lack of vascularity but cannot be completely excluded. Electronically signed by: Toño Salazar M.D. 03/10/2019 7:23 AM
--- NOTE | 2019-03-10 08:22 | History and Physical Report ---
DATE OF ADMISSION: 03/10/2019 CHIEF COMPLAINT: Heavy vaginal bleeding. HISTORY OF PRESENT ILLNESS: A 38-year-old 2, para 1 who is now approximately 2-1/2 weeks who presents to the Emergency Department with the above chief complaint. The patient notes that she was in her usual state of health, doing well in her recovery until yesterday evening. In the evening, she began with an increase in her vaginal bleeding to include soaking through some pads and passing large clot that were big as her palm. By the time she called me around midnight last night, she passed at least 4 clots and was having severe pain. She notes she has increased abdominal pain since the beginning of this increased bleeding. She denies any dizziness, lightheadedness. She did have some nausea that she thought was related to her pain, but no vomiting. She has been able to eat and drink normally at home. She is voiding without difficulty with no dysuria. Her bowels were normal. She reports that she is breast feeding and that has been going well. When she called me based on her description of her bleeding and her pain, she was advised to come to the Emergency Department. PAST OBSTETRICAL HISTORY: Recent section performed secondary to history of uterine myomectomy requiring section. In 2017, she also had a section. GYNECOLOGIC HISTORY: No recent abnormal Pap smears. History of cryo in 2002. No history of STDs. Past Medical History: Migraines, anxiety, depression. PAST SURGICAL HISTORY: x2, wisdom teeth extraction, myomectomy, appendectomy, cryosurgery cervix, hysteroscopy with removal of fibroids. SOCIAL HISTORY: No tobacco, alcohol or street drug use. FAMILY HISTORY: Noncontributory. REVIEW OF SYSTEMS: As per HPI. Since sitting in the Emergency Room, she has noted passage of quarter size clot, but then also a large palm sized clot again. The patient does report a sense of feeling feverish and having the chills as well. LABORATORY STUDIES: White count 13.5, hemoglobin 12.3, creatinine 0.6. Liver functions normal. Ultrasound performed. Final report pending. Preliminary report with approximately 5 cm thickness of the endometrium with blood. PHYSICAL EXAMINATION: VITAL SIGNS: Temperature 99, blood pressure 112/57, respirations 18, pulse 78, pulse ox 98% on room air. GENERAL: She is a pleasant female, sitting upright in her stretcher when I came into the room. SKIN: Grossly normal and intact, but warm to the touch. HEART: Regular rate and rhythm. LUNGS: Clear to auscultation bilaterally. ABDOMEN: Soft. Fundus firm, 2-3 cm down from the umbilicus, but exquisitely tender. No rebound, no guarding. BACK: no cvat EXTREMITIES: Nontender calves. PELVIC: Normal external female genitalia. Normal BUS. No clot within the vagina, although there is some extruding from the os. With placement of the speculum, there is no pain, but immediately with touching the cervix, there is severe pain. Bimanual exam is similar, extreme pain with motion of the cervix and palpation of the uterus. Cervix palpably closed. No bladder neck tenderness. ASSESSMENT: 1. Delayed bleeding. 2. Endometritis. 3. Status post section. PLAN: I discussed with the patient her findings on her laboratory studies, imaging, and clinical exam. I do feel her diagnosis is consistent with endometritis, which could explain the delayed bleeding and the clots within the uterus. I do not suspect that there are retained products as I do not see the appearance or the vascularity of such tissue on the us images I looked at. Additionally, she had a which would make retained products unlikely. We will have to look out for final report of her ultrasound at this time. She does have a slightly elevated white count which I would have thought would resume to normal by this time . Given this and her uterine tenderness which is exquisite, we will begin clindamycin, gentamicin dosing and see how she responds. We will plan to follow the white count as well as see improvement of the fundal exam as markers of treatment adequacy. The patient is aware of her planned hospital course. She is aware that I would discourage instrumentation of the uterus if primary suspicion is endometritis and not retained products; however, that assessment may need to be ongoing. She is aware that I will review her current management plan with my oncoming partner. LAWRENCE
[2019-03-10] MEDS ORDERED: ONDANSETRON 4 MG OD TAB PO PRN (09:56)
[2019-03-10] MEDS ORDERED: ACETAMINOPHEN 325 MG TAB PO PRN (09:56)
--- NOTE | 2019-03-10 10:19 | Pharmacy Report ---
Pharmacy Abx Initial Consult - Date of Service March 10, 2019 - Pharmacy Dosing Scope Date of Consult: 03/10/19 Consultation requested by: Dr. Johns [facility]acy is consulted to initiate gentamicin IV dosing therapy, order appropriate labs and adjust drug dose/frequency. - Subjective The patient is a 38 year old F admitted on 03/10/19 06:52 with possible endometritis. She is 2 weeks post- with a . - Objective Height: 5 ft 2 in Weight: 73.3 kg Vital Signs (Past 12hrs): Vital Signs Temp Pulse Pulse Resp BP BP Pulse Ox 03/10/19 09:34 37 C 65 16 116/69 99 03/10/19 09:28 65 16 116/69 99 03/10/19 08:04 76 16 115/75 99 03/10/19 07:33 37.0 C 80 16 115/77 99 03/10/19 06:51 37.0 C 80 16 115/77 99 03/10/19 05:41 37.2 C 78 18 112/57 L 98 03/10/19 03:56 104 H 22 132/96 100 03/10/19 03:12 37 C 80 20 126/86 100 Lab Results (24hrs): Laboratory Tests (24 Hours) 03/10/19 03/10/19 03:43 03:43 WBC 13.51 H Neut # (Auto) 11.04 H Creatinine 0.66 Est Cr Clr Drug Dosing 108.3 - Assessment & Plan Assessment 38 year old F admitted with possible endometritis. Plan gentamicin and clindamycin for treatment of endometritis. altered pharmacokinetics in the setting of post-. * Dose: 300 mg (4 mg/kg) IV x1 (~4 mg/kg of ACTUAL body weight) + 80 mg IV x to make 5 mg/kg of ACTUAL body weight * dosing to be subsequently based upon [place] Nomogram. * Per up-to-date it is not necessary to monitor levels for individuals who will be on < 3 days. Obtain random after tomorrow's dose when given all at one time. Pharmacy will continue to follow and will adjust dose/frequency as necessary. Thank you.
[2019-03-10] MEDS ORDERED: GENTAMICIN SULFATE 80 MG in DEXTROSE 5% 100 ML IV ONE (10:30)
[2019-03-10] MEDS: CLINDAMYCIN 900 MG in DEXTROSE 5% 50 ML IV SCH ×2 (10:49→18:08)
[2019-03-10] MEDS: IBUPROFEN 600 MG TAB PO PRN ×2 (10:51→20:08)
--- NOTE | 2019-03-10 23:20 | Emergency Department Note ---
Entered by Claudia Carty acting as a scribe for History of Present Illness General Chief complaint: Vaginal Bleeding Stated complaint: HEAVY VAGINAL BLEEDING,LARGE CLOTS,PELVIC/BACK JONATHAN Time Seen by Provider: 03/10/19 03:27 Source: patient History of Present Illness Onset (ago): hour(s) (3.5) Location: genitals Pain Consistency: + other (worsening) Maximum Pain Intensity: 9 Quality: + other (bleeding) Associated symptoms: + denies other symptoms (abnormal discharge, foul odor, dizziness, leg swelling, breast tenderness, areas of redness), + nausea/vomiting (nausea) and + other (abdominal cramping, fatigue, lightheadedness); no fever/chills The patient is a 38 year old female who presents to the ED with complaints of worsening vaginal bleeding starting 3.5 hours ago. The patient states that she had a and tubal ligation done on February 21. She states that this was th e second done and was done as a due to a history of uterine fibroids, endometriosis, and a uterine myomectomy. She states that everything went well and she has had normal bleeding that intermittently comes and goes. The patient states that yesterday she noticed that her bleeding was more heavy. She states that she went to bed with a nightly pad on, but woke up 3.5 hours ago and had soaked through. She states that her entire bed was soaked and she had passed two large clots that were the size of her palm. She states that she put another pad in, but 45 minutes later had filled it as well. She states that she then had another 2 palm sized clots. She states at this time she decided to call the conveyor loader OB who recommended coming to the ED. The patient notes that she has had large clots before, but nothing ever like this. The patient complains of abdominal cramps that radiate into her back. She states that these are cramps that are much worse than normal. She notes that intermittently she has shooting pains into either side of her lower abdomen. She notes that she has been alternating Tylenol and Ibuprofen with mild relief. The patient complains of feeling fatigued, nauseous, and lightheadedness. The patient denies abnormal discharge, foul odor, fever, chills, issues during the , dizziness, leg swelling, breast tenderness, and areas of redness. Home Medications Home Medications Medication Instructions Recorded Confirmed Type Calcium Magnesium 1 tab PO DAILY 02/13/19 03/10/19 History [place] 3-6-9 1 cap PO BID 02/13/19 03/10/19 History PNV cmb#95-ferrous fumarate-FA 1 - 2 tab PO BID 02/13/19 03/10/19 History [] zinc 50 mg PO DAILY 02/13/19 03/10/19 History ibuprofen 600 mg PO Q8H PRN #20 tab 02/23/19 03/10/19 Rx Allergies Allergy/AdvReac Type Severity Reaction Status Date / Time NARCOTICS AdvReac Unknown SENSITIVITY Uncoded 03/10/19 05:18 /NAUSEA/DIZ ZINESS/VOMI TING Past Med/Surg History Medical History delivery delivered Encounter for pre-operative examination 36 weeks gestation of with history of uterine myomectomy Ear pain, right (Acute) Family history of uterine fibroid Hx of endometriosis History of anxiety History of depression TMJ (temporomandibular joint disorder) NEVER LOCKED Surgical History History of anesthesia reaction SPINAL HEADACHE WITH PREVIOUS C/S C/S: 06/15/17: SAB X 5 attempts ("difficult 2/2 to bone") at L3-L4 at [facility]. De veloped headache and meningismus soon after and was discharged home. Symptoms have waxed and waned but worsened and pt presented to ED for evaluation. Blood patch vs. conservative management discussed and pt opted to continue conservative treatment (fluids and caffeine treatment at home). History of appendectomy History of section History of myomectomy History of wisdom tooth extraction Nausea and vomiting after administration of anesthetic agent Family History Other Cancer Diabetes Heart disease Hypertension Seizure Social History Preferred Language: Polish Communication Ability: Effective Beliefs That Will Affect Care: None marital status: Current Living Situation: Spouse and Family current occupational status: unemployed Other Information That Helps Us Care for You: No Feels Safe at Home: Yes Safety Concerns: Feels Safe At This Time Smoking Status: Never smoker Hx Alcohol Use: No Hx Substance Use: No Review of Systems See HPI for pertinent positives & negatives. and A total of 10 systems reviewed and were otherwise negative Physical Exam Vital Signs Vital Signs - 24 hr 03/10/19 03:12 03/10/19 03:56 03/10/19 05:41 Temperature 37 C 37.2 C Temperature Source Oral Oral Sepsis Recent Fever Within 48 Hours No Sepsis Action Taken by Nursing No Action Required Pulse Rate 80 Pulse Rate [Right Finger] 104 H 78 Respiratory Rate 20 22 18 Respiratory Effort / Characteristics Normal for Patient Blood Pressure 126/86 Blood Pressure [Right Arm] 132/96 112/57 L Blood Pressure Mean 99 Blood Pressure Mean [Right Arm] 108 75 Blood Pressure Position Sitting Pulse Oximetry 100 100 98 Oxygen Delivery Method Room Air Room Air Room Air 03/10/19 06:51 Temperature 37.0 C Temperature Source Oral Sepsis Recent Fever Within 48 Hours Sepsis Action Taken by Nursing Pulse Rate Pulse Rate [Right Finger] 80 Respiratory Rate 16 Respiratory Effort / Characteristics Blood Pressure Blood Pressure [Right Arm] 115/77 Blood Pressure Mean Blood Pressure Mean [Right Arm] 89 Blood Pressure Position Pulse Oximetry 99 Oxygen Delivery Method Room Air GENERAL: alert, well appearing, well nourished, no distress, non-toxic EYE EXAM: normal conjunctiva, PERRL and EOM's grossly intact OROPHARYNX: no exudate, no erythema, lips, buccal mucosa, and tongue normal and mucous membranes are moist NECK: supple, no nuchal rigidity, no adenopathy, non-tender LUNGS: Clear to auscultation. Normal chest wall mechanics HEART: no murmurs, S1 normal and S2 normal ABDOMEN: Abdomen soft, lower transverse Fan and Steel incision that appears to be healing well. No dehiscence. No surrounding erythema. No drainage. Some pain with palpation across the lower abdomen. Normo-active bowel sounds, no masses, no rebound or guarding. PELVIC: Normal external genitalia. Blood and clots in vaginal vault. Several removed. Clots seen at cervical os. No CMT. Mild left adnexal tenderness on bimanual exam. No right adnexal tenderness. BACK: Back is symmetrical on inspection and there is no deformity, no midline tenderness, no CVA tenderness. SKIN: no rashes and no bruising UPPER EXTREMITIES: upper extremities are grossly normal. LOWER EXTREMITIES: No pitting edema. NEURO EXAM: Normal sensorium, cranial nerves II-XII grossly intact, normal s peech, no gross weakness of arms, no gross weakness of legs. Course 0329: Past medical records reviewed. The patient was evaluated in room A3. A complete history and physical exam was performed. 0459: I reevaluated the patient and she is still intermittently having bad cramps. I updated her on her labs at this time. 0601: I reevaluated the patient and performed a pelvic exam at this time. 0616: I discussed the patient's case with Dr. Johns- OB-NEON SIGN ERECTOR. She will come see the patient. 0702: I spoke with Dr. Johns- OB-NEON SIGN ERECTOR. She evaluted the pt at bedside. She is going to admit the patient for endometritis. Consultations Consultation #1: I discussed the patient's case with Dr. Johns- OB-NEON SIGN ERECTOR. She will come see the patient. Time: 06:16 Consultation #2: I spoke with Dr. Johns- OB-NEON SIGN ERECTOR. She is going to admit the patient for endometritis. Time: 07:02 Administered Medications Clindamycin Phosphate 900 mg/ (Dextrose) 56 mls @ 112 mls/hr IV Q8@0200,1000,1800 KALANI Stop: 03/20/19 10:29 Last Admin: 03/10/19 18:08 Dose: 112 mls/hr Documented by: [id number] Infusion: 03/10/19 11:19 Dose: 0 mls/hr Documented by: [id number] Admin: 03/10/19 10:49 Dose: 112 mls/hr Documented by: [id number] Ibuprofen (Motrin) 600 mg PO Q6H PRN PRN Reason: Fever Stop: 04/09/19 09:55 Last Admin: 03/10/19 20:08 Dose: 600 mg Documented by: [id number] Admin: 03/10/19 10:51 Dose: 600 mg Documented by: [id number] Discontinued Medications Fentanyl Citrate (Fentanyl Citrate) 50 mcg IV NOW STA Stop: 03/10/19 03:53 Last Admin: 03/10/19 04:02 Dose: 50 mcg Documented by: [id number] Acetaminophen (Ofirmev) 1,000 mg in 100 mls @ 400 mls/hr IV NOW STA Stop: 03/10/19 04:06 Last Infusion: 03/10/19 04:11 Dose: 0 mls/hr Documented by: [id number] Admin: 03/10/19 03:58 Dose: 400 mls/hr Documented by: [id number] Gentamicin Sulfate 300 mg/ (Dextrose) 107.5 mls @ 100 mls/hr IV UD [facility]; Protocol Stop: 03/20/19 06:59 Last Infusion: 03/10/19 08:53 Dose: 0 mls/hr Documented by: [id number] Admin: 03/10/19 07:48 Dose: 100 mls/hr Documented by: [id number] Gentamicin Sulfate 80 mg/ (Dextrose) 102 mls @ 102 mls/hr IV NOW ONE Stop: 03/10/19 11:29 Last Infusion: 03/10/19 13:06 Dose: 0 mls/hr Documented by: [id number] Admin: 03/10/19 12:06 Dose: 102 mls/hr Documented by: [id number] Ondansetron HCl (Zofran) 4 mg IV NOW STA Stop: 03/10/19 03:53 Last Admin: 03/10/19 03:58 Dose: 4 mg Documented by: [id number] Medical Decision Making Differential Diagnosis Differential diagnosis: Etiologies such as ectopic , dysfunction uterine bleeding, pelvic mass, fibroid, coagulopathy, anemia, trauma, infection, as well as others were entertained. Medical Records Attestation: I reviewed the patient's medical records. Home Medications Current Medication List: was personally reviewed by me Laboratory Data Attestation: I reviewed the patient's lab results. Result diagrams: 03/10/19 03:43 03/10/19 03:43 Lab Results 03/10/19 03/10/19 03/10/19 Range/Units 03:43 03:43 03:49 WBC 13.51 H (4.8-10.8) K/uL RBC 4.31 (4.2-5.4) M/uL Hgb 12.3 (12.0-16.0) g/dL Hct 37.4 (37-47) % MCV 86.8 (80-100) fL MCH 28.5 (25-34) pg MCHC 32.9 (32-36) g/dL RDW Std Deviation 46.2 (36.4-46.3) fL RDW Coeff of Goldie 14.4 (11.5-14.5) % Plt Count 297 (130-400) K/uL MPV 9.3 (7.4-10.4) fL Immature Gran % (Auto) 0.3 % Neut % (Auto) 81.8 % Lymph % (Auto) 12.1 % George % (Auto) 4.8 % Eos % (Auto) 0.8 % Baso % (Auto) 0.2 % Immature Gran # (Auto) 0.04 H (0.00-0.02) K/uL Neut # (Auto) 11.04 H (1.4-6.5) K/uL Lymph # (Auto) 1.64 (1.2-3.4) K/uL George # (Auto) 0.65 H (0.11-0.59) K/uL Eos # (Auto) 0.11 (0-0.5) K/uL Baso # (Auto) 0.03 (0-0.2) K/uL Sodium 141 (136-145) mmol/L Potassium 3.6 (3.5-5.1) mmol/L Chloride 108 H (98-107) mmol/L Carbon Dioxide 25 (21-32) mmol/L Anion Gap 8.0 (3-11) BUN 18 (7-18) mg/dl Creatinine 0.66 (0.6-1.2) mg/dl Est Cr Clr Drug Dosing 108.3 ml/min Est GFR ( Amer) 129.9 Est GFR (Non-Af Amer) 112.1 BUN/Creatinine Ratio 26.9 H (10-20) Glucose 90 (70-99) mg/dl Calcium 8.6 (8.5-10.1) mg/dl Total Bilirubin 0.4 (0.2-1) mg/dl AST 24 (15-37) U/L ALT 34 (12-78) U/L Alkaline Phosphatase 95 (45-117) U/L Total Protein 7.1 (6.4-8.2) gm/dl Albumin 3.8 (3.4-5.0) gm/dl Globulin 3.3 (2.5-4.0) gm/dl Albumin/Globulin Ratio 1.2 (0.9-2) Blood Type O Positive Antibody Screen NEGATIVE Imaging Data Radiologist's Impression: Radiology results as stated below per my review and the radiologist's interpretation: US PELVIS: Transabdominal study. The endometrium is severely thickened measuring up to 5.1 cm with internal complex appearance. Differential considerations include retained products versus blood clots versus endometritis. No definite internal vascular flow is detected on Doppler interrogation. Unremarkable ovaries with internal vascular flow. No adnexal masses. Small amount of free fluid. Radiologist: Perlita Augustine MD Study ready at 04:49 and initial results transmitted at 05:29. Blood Pressure Blood Pressure Findings: Normal blood pressure Blood Pressure Disposition: did not require urgent referral MDM Narrative Patient well-appearing here despite complaints. Patient with persistent bleed ing and did pass several clots here as well. Patient afebrile. Patient did have a mild leukocytosis, although this is down from her recent delivery. Patient with crampy lower abdominal pain intermittently. Patient sent for ultrasound which showed endometrial thickening which was concerning for retained products of conception versus endometritis. Patient's H&H stable. Case discussed with on-call LAP LAYER who came and evaluated patient in the emergency room. They plan to admit the patient and observe her for possible evolving endometritis. They placed orders for antibiotics and admission. Patient hemodynamically stable throughout. No evidence of bacteremia/sepsis. No other symptoms to suggest additional etiology for lower abdominal pain. I feel it is most likely related to the vaginal bleeding and possible evolving endometritis. Patient was made aware of all results and was in agreement with plan. Impression & Plan Endometritis, Abnormal uterine bleeding, Discharge Plan Visit Data *Final* Discharge Date/Time: 03/10/19 09:34 Chief Complaint: Vaginal Bleeding Stated Complaint: HEAVY VAGINAL BLEEDING,LARGE CLOTS,PELVIC/BACK JONATHAN ED Provider: Mag Eng Discharge Problem: Endometritis, Abnormal uterine bleeding, Patient Disposition: Admitted As Inpatient Discharge Instructions Interventions: ED Discharge Assessment Last Done: 03/10/19 09:34 The scribe's documentation has been prepared under my direction and personally reviewed by me in its entirety. I confirm that the note above accurately reflects all work, treatment, procedures, and medical decision making performed by me.
[2019-03-11] MEDS: CLINDAMYCIN 900 MG in DEXTROSE 5% 50 ML IV SCH ×2 (02:10→09:54)
[2019-03-11] MEDS: IBUPROFEN 600 MG TAB PO PRN ×2 (02:30→08:36)
--- NOTE | 2019-03-11 06:37 | Gynecologic Progress Note ---
Date of Service March 11, 2019 Assessment & Plan (1) Endometritis: - patient appears to be improving clinically - labs from this AM pending - continue with the Gent/Clinda Subjective feel better, less bleeding and pain Physical Exam Gastrointestinal (Abdomen): Abdomen- still with uterine tenderness, incision intact Musculoskeletal: (-) deep calf tenderness Results & Data Vital Signs (Past 12 Hours) Vital Signs Temp Pulse Pulse Resp BP Pulse Ox 03/11/19 03:00 36.5 C 66 20 110/67 99 03/10/19 23:00 36.5 C 75 18 110/64 98 03/10/19 19:45 36.6 C 64 20 114/90 98
[2019-03-11 07:28] LABS: Basophils # (auto) 0.02 K/uL (0-0.2); Basophils % (auto) 0.4 %; Eosinophils # (auto) 0.16 K/uL (0-0.5); Eosinophils % (auto) 3.1 %; Hematocrit (blood only) 32.8 % (37-47); Hemoglobin 10.8 g/dL (12.0-16.0); Immature Granulocytes # (auto) 0.01 K/uL (0.00-0.02); Immature Granulocytes % (auto) 0.2 %; Lymphocytes # (auto) 1.24 K/uL (1.2-3.4); Lymphocytes % (auto) 23.9 %; Mean Corpuscular Hgb Conc 32.9 g/dL (32-36); Mean Corpuscular Volume 88.2 fL (80-100); Mean Platelet Volume 9.1 fL (7.4-10.4); Monocytes # (auto) 0.29 K/uL (0.11-0.59); Monocytes % (auto) 5.6 %; Neutrophils # (auto) 3.46 K/uL (1.4-6.5); Neutrophils % (auto) 66.8 %; Platelet Count 264 K/uL (130-400); RDW Coefficient of Variation 14.8 % (11.5-14.5); RDW Standard Deviation 48.4 fL (36.4-46.3); Red Blood Count 3.72 M/uL (4.2-5.4); White Blood Count 5.18 K/uL (4.8-10.8)
[2019-03-11] MEDS ORDERED: GENTAMICIN SULFATE 380 MG in DEXTROSE 5% 100 ML IV SCH (08:00)
--- NOTE | 2019-03-12 08:28 | Discharge Summary ---
Date of Service Day of admission: March 10, 2019 Day of discharge: March Admission HPI Per Admitting Provider Admitting diagnosis: 1. Bleeding 2. Endometritis Discharge diagnosis: same Procedures: intravenous antibiotics Discharge Data Consultations 03/10/19 07:08 ED Decision to Admit Stat Hospital Course (1) Endometritis: 38yo about 2+wks with increased bleeding and concern for endometritis based on clinical exam and elevated white count. She was given intravenous antibiotics and responded within 24hours and was stable for discharge home. She was given outpatient course of antibiotics. Her bleeding slowed, her pain improved and her white count normalized. She was to followup for routine check up. Discharge instructions given. Full details of admission in admission H&P.
== END 2019-03-11 15:50 | disposition home or self-care (01) ==
LOC: ED 03:11 → 4N 03:11

== ENCOUNTER 2019-03-13 21:31 | Observation (INO) ==
[~2019-03-13 21:31] MED LIST changes: -BETAMETH SOD PHOS/ACETATE IA 6 MG/ML ONE; +SODIUM CHLORIDE 0.9% 1000ML 1,000 ML IV SCH
[2019-03-13] MEDS ORDERED: OPTIRAY 320 125ml IV PRN (21:51)
--- NOTE | 2019-03-13 21:52 | CT Scan Report ---
CT head/brain wo con CLINICAL HISTORY: 38 years-old Female presenting with Stroke evaluation . TECHNIQUE: Multidetector CT imaging of the head was performed without the use of intravenous contrast . IV contrast: None. One or more dose lowering techniques were used consistent with the principles of ALARA (as low as reasonably achievable), including automatic exposure control, mA or kV adjustment t o individual patient size, and/or use of iterative reconstruction. COMPARISON: Brain MR from 12/15/2014. CT DOSE (mGy.cm): The estimated cumulative dose is unavailable at the time of dictation. FINDINGS: Lone Lead Lineman topogram: Unremarkable. Ventricles and sulci normal in size. No hemorrhage. Brain parenchyma normal in appearance with preser zahra wang-white differentiation. No acute territorial infarct. No mass effect or midline shift. No ext ra-axial fluid collection. Paranasal sinuses and mastoid air cells clear. Calvarium intact. IMPRESSION: 1. No acute intracranial abnormality. Electronically signed by: Clarence Rendon M.D. 03/13/2019 9:51 PM
--- NOTE | 2019-03-13 22:01 | CT Scan Report ---
CT angio head w con CLINICAL HISTORY: 38 years-old Female presenting with aphasia. TECHNIQUE: Multidetector CT angiography of the head was performed after the administration of intrave nous contrast. 3-D volumetric and/or maximum intensity projection (MIP) images were subsequently kim nstructed for review. IV contrast: Optiray 320. One or more dose lowering techniques were used consis tent with the principles of ALARA (as low as reasonably achievable), including automatic exposure con trol, mA or kV adjustment to individual patient size, and/or use of iterative reconstruction. COMPARISON: Noncontrast CT head performed contemporaneously. CT DOSE (mGy.cm): The estimated cumulative dose is unavailable to the time dictation. FINDINGS: Stock Shaper topogram: Unremarkable. Anterior circulation: Intracranial portions of the internal carotid arteries patent to the level of t he termini. Anterior cerebral arteries patent. Middle cerebral arteries patent. Anterior communicatin g artery patent. Posterior circulation: Codominant vertebral arteries. Intradural portions of the vertebral arteries p atent. Posterior inferior cerebellar arteries patent. Basilar artery patent. Anterior inferior cerebe llar arteries poorly visualized. Superior cerebellar arteries patent. Posterior cerebral arteries pat ent. Posterior communicating arteries hypoplastic or aplastic. Dural venous sinuses: Patent. Other: Allowing for the phase of contrast, brain parenchyma within normal limits. Calvarium intact. IMPRESSION: 1. No evidence of aneurysm, focal vessel occlusion, or significant stenosis of the intracranial rosemarie alicia. Electronically signed by: Clarence Rendon M.D. 03/13/2019 10:00 PM
--- NOTE | 2019-03-13 22:03 | CT Scan Report ---
CT angio neck with con CLINICAL HISTORY: 38 years-old Female presenting with aphasia, stroke evaluation. TECHNIQUE: Multidetector CT angiography of the neck was performed after the administration of intrave nous contrast. 3-D volumetric and/or maximum intensity projection (MIP) images were subsequently kim nstructed for review. IV contrast: Optiray 320. One or more dose lowering techniques were used consis tent with the principles of ALARA (as low as reasonably achievable), including automatic exposure con trol, mA or kV adjustment to individual patient size, and/or use of iterative reconstruction. Stenosi s measurements were based on NASCET-like criteria (distal lumen diameter as the denominator for steno sis measurement). COMPARISON: None. CT DOSE (mGy.cm): The estimated cumulative dose is 1616.93 mGy.cm. FINDINGS: Painting And Coating Worker topogram: Unremarkable. Aortic arch: Normal three-vessel aortic arch with patent origins of the branch vessels. Innominate artery: Patent. Right subclavian artery: Patent. Right common carotid artery: Patent. Right internal and external carotid arteries: Right carotid bifurcation patent. Right internal and ex ternal carotid arteries widely patent. Left common carotid artery: Patent. Left internal and external carotid arteries: Left carotid bifurcation patent. Left internal and exter nal carotid arteries widely patent. Left subclavian artery: Patent. Vertebral arteries: Codominant vertebral arteries. Origins and courses of the bilateral vertebral art eries patent. Other: Limited intracranial evaluation within normal limits. Soft tissues of the neck normal allowing for the phase of contrast. Normal cervical spine. Lung apices clear. IMPRESSION: 1. No evidence of dissection, focal vessel occlusion, or significant stenosis of the cervical arteri es. Electronically signed by: Clarence Rendon M.D. 03/13/2019 10:02 PM
--- NOTE | 2019-03-13 22:04 | Emergency Department Note ---
Entered by Lj Keller acting as a scribe for Broderick Chang DO History of Present Illness General Chief complaint: Stroke Alert Stated complaint: CVA SX. Time Seen by Provider: 03/13/19 21:25 Source: EMS Mode of arrival: EMS History of Present Illness Provider complaint: Stroke like symptoms Onset (ago): hour(s) 1 Location: head Radiation: neck (left side) Pain Consistency: + other (episode) Current Pain Intensity: 5 Associated symptoms: + headaches and + other (Positive Aphasia) The patient is a 38 year old female who presents to the Emergency Room with complaints of constant stroke like symptoms that started about an hour ago, but are slowly improving. Per EMS, upon arrival the patient was aphasic and complaining of a left sided headache. The patient also notes that en route she started developing left sided neck pain. Currently, her speech is better than it was at symptom onset and she rates her pain as a 5/10. The patient also notes that she no longer has any numbness or tingling. The patient is 3 weeks post from a delivery. The was done because of the talia maxwell's history of a myomectomy. The patient is also currently on amoxicillin for endometritis. The patient does not smoker and occasionally uses alcohol. Home Medications Home Medications Medication Instructions Recorded Confirmed Type Calcium Magnesium 1 tab PO DAILY 02/13/19 03/13/19 History Dermott 3-6-9 1 cap PO BID 02/13/19 03/13/19 History PNV cmb#95-ferrous fumarate-FA 1 - 2 tab PO BID 02/13/19 03/13/19 History [] zinc 50 mg PO DAILY 02/13/19 03/13/19 History ibuprofen 600 mg PO Q8H PRN #20 tab 02/23/19 03/13/19 Rx amoxicillin-pot clavulanate 1 tab PO BID #20 tab 03/11/19 03/13/19 Rx Allergies Allergy/AdvReac Type Severity Reaction Status Date / Time NARCOTICS AdvReac Unknown SENSITIVITY Uncoded 03/13/19 21:45 /NAUSEA/DIZ ZINESS/VOMI TING Past Med/Surg History Medical History delivery delivered Encounter for pre-operative examination 36 weeks gestation of with history of uterine myomectomy Ear pain, right (Acute) Family history of uterine fibroid History of anxiety History of depression Hx of endometriosis TMJ (temporomandibular joint disorder) NEVER LOCKED Surgical History History of anesthesia reaction SPINAL HEADACHE WITH PREVIOUS C/S C/S: 06/15/17: SAB X 5 attempts ("difficult 2/2 to bone") at L3-L4 at [facility]. Developed headache and meningismus soon after and was discharged home. Symptoms have waxed and waned but worsened and pt presented to ED for evaluation. Blood patch vs. conservative management discussed and pt opted to continue conservative treatment (fluids and caffeine treatment at home). History of appendectomy History of section History of myomectomy History of wisdom tooth extraction Nausea and vomiting after administration of anesthetic agent Family History Other Cancer Diabetes Heart disease Hypertension Seizure Social History Preferred Language: Citizen Of [place] Communication Ability: Effective Beliefs That Will Affect Care: None marital status: Current Living Situation: Spouse and Family current occupational status: unemployed Feels Safe at Home: Yes Smoking Status: Never smoker Hx Alcohol Use: No Hx Substance Use: No Review of Systems See HPI for pertinent positives & negatives. and A total of 10 systems reviewed and were otherwise negative Physical Exam Vital Signs Vital Signs - 24 hr 03/13/19 21:35 03/13/19 22:06 03/13/19 22:09 Temperature 36.8 C Temperature Source Oral Sepsis Recent Fever Within 48 Hours No Sepsis New/Unexplained Change in Mental Status No Sepsis Action Taken by Nursing No Action Required Pulse Rate 65 Pulse Rate [Apical] 62 Pulse Rhythm Regular Pulse Rhythm [Apical] Regular Pulse Strength Normal Pulse Strength [Apical] Normal Respiratory Rate 18 18 Respiratory Effort / Characteristics Non-Labored Non-Labored Respiratory Depth Normal Respiratory Pattern Blood Pressure 141/85 H Blood Pressure [Right Arm] 106/79 Blood Pressure Mean 103 Blood Pressure Mean [Right Arm] 88 Blood Pressure Position [Right Arm] Pulse Oximetry 98 98 98 Oxygen Delivery Method Room Air Room Air Room Air 03/13/19 23:49 03/14/19 01:35 Temperature Temperature Source Sepsis Recent Fever Within 48 Hours Sepsis New/Unexplained Change in Mental Status Sepsis Action Taken by Nursing Pulse Rate Pulse Rate [Apical] 63 54 L Pulse Rhythm Pulse Rhythm [Apical] Regular Regular Pulse Strength Pulse Strength [Apical] Normal Normal Respiratory Rate 16 16 Respiratory Effort / Characteristics Non-Labored Non-Labored Respiratory Depth Normal Normal Respiratory Pattern Regular Regular Blood Pressure Blood Pressure [Right Arm] 116/78 118/83 Blood Pressure Mean Blood Pressure Mean [Right Arm] 90 94 Blood Pressure Position [Right Arm] Lying Lying Pulse Oximetry 97 95 Oxygen Delivery Method Room Air Room Air GENERAL: The patient is awake and alert. She is somewhat anxious appearing. EYES: The conjunctivae are clear. The pupils are round and reactive. EARS, NOSE, MOUTH AND THROAT: The nose is without any evidence of any deformity. Mucous membranes are moist tongue is midline NECK: The neck is nontender and supple. RESPIRATORY: Normal respiratory effort is noted there is no evidence of wheezing rhonchi or rales CARDIOVASCULAR: Regular rate and rhythm noted there no murmurs rubs or gallops normal S1 normal S2 GASTROINTESTINAL: The abdomen is soft. Bowel sounds are present in all quadrants. Abdomen is nontender MUSCULOSKELETAL/EXTREMITIES: There is no evidence of gross deformity full range of motion is noted in the hips and shoulders SKIN: There is no obvious evidence of any rash. There are no petechiae, pallor or cyanosis noted. NEUROLOGIC: Patient is awake and oriented x3. Strength is symmetric in both upper and lower extremities. There is no facial droop appreciated. Speech is pressured but understandable. Course 2131: The patient was evaluated in room B01, and a complete history and physical examination were performed. 2150: I spoke to Dr. Keegan Ramos Neurologist and she is going to evaluate her via TeleStroke. 0: I spoke to Dr. Allison and she said not to give TPA because the patient's symptoms are quickly improving. 2310: I spoke to Dr. Guzman [facility] Hospitalist about the patient's case and he is going to accept her for further evaluation. 2320: I updated the patient on the plan and she agreed. Consultations Consultation #1: I spoke to Dr. Keegan Ramos Neurologist and she is going to evaluate her via TeleStroke. Time: 21:51 Consultation #2: I spoke to Dr. Allison and she said not to give TPA because the patient's symptoms are quickly improving. Time: 22:10 Consultation #3: I spoke to Dr. Guzman - [facility] Hospitalist about the patie nabil's case and he is going to accept her for further evaluation. Time: 23:10 Administered Medications Sodium Chloride (Nss 1000ml) 1,000 mls @ 50 mls/hr IV .Q20H KALANI Stop: 04/12/19 21:29 Last Admin: 03/13/19 22:20 Dose: 50 mls/hr Documented by: [id number] Ioversol (Optiray 320 125ml) 118 ml IV ONCE PRN PRN Reason: Interaction Checking Stop: 03/17/19 21:50 Last Admin: 03/13/19 21:52 Dose: 118 ml Documented by: [id number] Medical Decision Making Differential Diagnosis Differential Diagnosis includes but is not limited to ischemic Stroke, hemorrhagic stroke, bells palsy, mass, neoplasm, migraine headache, seizure, subarachnoid hemorrhage, TIA, and transient global amnesia. Medical Records Attestation: I reviewed the patient's medical records. Home Medications Current Medication List: was personally reviewed by me Laboratory Data Attestation: I reviewed the patient's lab results. Result diagrams: 03/13/19 22:00 03/13/19 22:00 Lab Results 03/13/19 03/13/19 03/13/19 Range/Units 21:59 22:00 22:00 WBC 5.19 (4.8-10.8) K/uL RBC 3.68 L (4.2-5.4) M/uL Hgb 10.4 L (12.0-16.0) g/dL Hct 31.9 L (37-47) % MCV 86.7 (80-100) fL MCH 28.3 (25-34) pg MCHC 32.6 (32-36) g/dL RDW Std Deviation 46.4 H (36.4-46.3) fL RDW Coeff of Goldie 14.6 H (11.5-14.5) % Plt Count 312 (130-400) K/uL MPV 9.0 (7.4-10.4) fL Immature Gran % (Auto) 0.4 % Neut % (Auto) 47.0 % Lymph % (Auto) 38.0 % Preble % (Auto) 11.9 % Eos % (Auto) 2.3 % Baso % (Auto) 0.4 % Immature Gran # (Auto) 0.02 (0.00-0.02) K/uL Neut # (Auto) 2.44 (1.4-6.5) K/uL Lymph # (Auto) 1.97 (1.2-3.4) K/uL Preble # (Auto) 0.62 H (0.11-0.59) K/uL Eos # (Auto) 0.12 (0-0.5) K/uL Baso # (Auto) 0.02 (0-0.2) K/uL PT 10.3 (9.0-12.0) Seconds INR 1.0 (0.9-1.1) APTT 25.9 (21.0-31.0) Seconds PTT Ratio 1.0 Sodium (136-145) mmol/L Potassium (3.5-5.1) mmol/L Chloride (98-107) mmol/L Carbon Dioxide (21-32) mmol/L Anion Gap (3-11) BUN (7-18) mg/dl Creatinine (0.6-1.2) mg/dl Est Cr Clr Drug Dosing ml/min Est GFR ( Amer) Est GFR (Non-Af Amer) BUN/Creatinine Ratio (10-20) Glucose (70-99) mg/dl POC Glucose 88 (70-99) Calcium (8.5-10.1) mg/dl Magnesium (1.8-2.4) mg/dl Total Bilirubin (0.2-1) mg/dl AST (15-37) U/L ALT (12-78) U/L Alkaline Phosphatase (45-117) U/L Troponin I (0-0.045) ng/ml Total Protein (6.4-8.2) gm/dl Albumin (3.4-5.0) gm/dl Globulin (2.5-4.0) gm/dl Albumin/Globulin Ratio (0.9-2) Blood Type Antibody Screen 03/13/19 03/13/19 Range/Units 22:00 22:00 WBC (4.8-10.8) K/uL RBC (4.2-5.4) M/uL Hgb (12.0-16.0) g/dL Hct (37-47) % MCV (80-100) fL MCH (25-34) pg MCHC (32-36) g/dL RDW Std Deviation (36.4-46.3) fL RDW Coeff of Goldie (11.5-14.5) % Plt Count (130-400) K/uL MPV (7.4-10.4) fL Immature Gran % (Auto) % Neut % (Auto) % Lymph % (Auto) % Preble % (Auto) % Eos % (Auto) % Baso % (Auto) % Immature Gran # (Auto) (0.00-0.02) K/uL Neut # (Auto) (1.4-6.5) K/uL Lymph # (Auto) (1.2-3.4) K/uL Preble # (Auto) (0.11-0.59) K/uL Eos # (Auto) (0-0.5) K/uL Baso # (Auto) (0-0.2) K/uL PT (9.0-12.0) Seconds INR (0.9-1.1) APTT (21.0-31.0) Seconds PTT Ratio Sodium 141 (136-145) mmol/L Potassium 3.9 (3.5-5.1) mmol/L Chloride 106 (98-107) mmol/L Carbon Dioxide 27 (21-32) mmol/L Anion Gap 7.0 (3-11) BUN 19 H (7-18) mg/dl Creatinine 0.61 (0.6-1.2) mg/dl Est Cr Clr Drug Dosing 123.8 ml/min Est GFR ( Amer) 133.3 Est GFR (Non-Af Amer) 115.0 BUN/Creatinine Ratio 30.6 H (10-20) Glucose 89 (70-99) mg/dl POC Glucose (70-99) Calcium 9.0 (8.5-10.1) mg/dl Magnesium 2.0 (1.8-2.4) mg/dl Total Bilirubin 0.4 (0.2-1) mg/dl AST 22 (15-37) U/L ALT 45 (12-78) U/L Alkaline Phosphatase 73 (45-117) U/L Troponin I < 0.015 (0-0.045) ng/ml Total Protein 6.1 L (6.4-8.2) gm/dl Albumin 3.2 L (3.4-5.0) gm/dl Globulin 2.9 (2.5-4.0) gm/dl Albumin/Globulin Ratio 1.1 (0.9-2) Blood Type O Positive Antibody Screen NEGATIVE Imaging Data Radiologist's Impression: Radiology results as stated below per my review and the radiologist's interpretation: XR chest 1V portable CLINICAL HISTORY: 38 years-old Female presenting with weakness. TECHNIQUE: Portable upright AP view of the chest was obtained. COMPARISON: None. FINDINGS: Cardiomediastinal silhouette normal. No focal opacity. No large effusion or pneumothorax. Osseous structures normal. Upper abdomen normal. IMPRESSION: 1. No acute cardiopulmonary disease. Electronically signed by: Clarence Rendon M.D. 03/13/2019 10:[address] head/brain wo con CLINICAL HISTORY: 38 years-old Female presenting with Stroke evaluation . TECHNIQUE: Multidetector CT imaging of the head was performed without the use of intravenous contrast. IV contrast: None. One or more dose lowering techniques were used consistent with the principles of ALARA (as low as reasonably achievable), including automatic exposure control, mA or kV adjustment to i ndividual patient size, and/or use of iterative reconstruction. COMPARISON: Brain MR from 12/15/2014. CT DOSE (mGy.cm): The estimated cumulative dose is unavailable at the time of dictation. FINDINGS: Gold Letterer topogram: Unremarkable. Ventricles and sulci normal in size. No hemorrhage. Brain parenchyma normal in appearance with preserved wang-white differentiation. No acute territorial infarct. No mass effect or midline shift. No extra-axial fluid collection. Paranasal sinuses and mastoid air cells clear. Calvarium intact. IMPRESSION: 1. No acute intracranial abnormality. Electronically signed by: Clarecne Rendon M.D. 03/13/2019 9:[address] angio head w con CLINICAL HISTORY: 38 years-old Female presenting with aphasia. TECHNIQUE: Multidetector CT angiography of the head was performed after the administration of intravenous contrast. 3-D volumetric and/or maximum intensity projection (MIP) images were subsequently reconstructed for review. IV contrast: Optiray 320. One or more dose lowering techniques were used consistent with the principles of ALARA (as low as reasonably achievable), including automatic exposure control, mA or kV adjustment to individual patient size, and/or use of iterative reconstruction. COMPARISON: Noncontrast CT head performed contemporaneously. CT DOSE (mGy.cm): The estimated cumulative dose is unavailable to the time dictation. FINDINGS: Gold Letterer topogram: Unremarkable. Anterior circulation: Intracranial portions of the internal carotid arteries patent to the level of the termini. Anterior cerebral arteries patent. Middle cerebral arteries patent. Anterior communicating artery patent. Posterior circulation: Codominant vertebral arteries. Intradural portions of the vertebral arteries patent. Posterior inferior cerebellar arteries patent. Basilar artery patent. Anterior inferior cerebellar arteries poorly visualized. Superior cerebellar arteries patent. Posterior cerebral arteries patent. Posterior communicating arteries hypoplastic or aplastic. Dural venous sinuses: Patent. Other: Allowing for the phase of contrast, brain parenchyma within normal limits. Calvarium intact. IMPRESSION: 1. No evidence of aneurysm, focal vessel occlusion, or significant stenosis of the intracranial arteries. Electronically signed by: Clarence Rendon M.D. 03/13/2019 10:[address] angio neck with con CLINICAL HISTORY: 38 years-old Female presenting with aphasia, stroke evaluation. TECHNIQUE: Multidetector CT angiography of the neck was performed after the administration of intravenous contrast. 3-D volumetric and/or maximum intensity projection (MIP) images were subsequently reconstructed for review. IV contrast: Optiray 320. One or more dose lowering techniques were used consistent with the principles of ALARA (as low as reasonably achievable), including automatic expos ure control, mA or kV adjustment to individual patient size, and/or use of iterative reconstruction. Stenosis measurements were based on NASCET-like criteria (distal lumen diameter as the denominator for stenosis measurement). COMPARISON: None. CT DOSE (mGy.cm): The estimated cumulative dose is 1616.93 mGy.cm. FINDINGS: Gold Letterer topogram: Unremarkable. Aortic arch: Normal three-vessel aortic arch with patent origins of the branch vessels. Innominate artery: Patent. Right subclavian artery: Patent. Right common carotid artery: Patent. Right internal and external carotid arteries: Right carotid bifurcation patent. Right internal and external carotid arteries widely patent. Left common carotid artery: Patent. Left internal and external carotid arteries: Left carotid bifurcation patent. Left internal and external carotid arteries widely patent. Left subclavian artery: Patent. Vertebral arteries: Codominant vertebral arteries. Origins and courses of the bilateral vertebral arteries patent. Other: Limited intracranial evaluation within normal limits. Soft tissues of the neck normal allowing for the phase of contrast. Normal cervical spine. Lung apices clear. IMPRESSION: 1. No evidence of dissection, focal vessel occlusion, or significant stenosis of the cervical arteries. Electronically signed by: Clarence Rendon M.D. 03/13/2019 10:02 PM ECG Data Attestation: I personally reviewed and interpreted this ECG as follows: Indication: weakness Rate (beats per minute): 69 Rhythm: normal sinus Findings: no nonspecific-ST abn, no PAC and no PVC Blood Pressure Blood Pressure Findings: Normal blood pressure Blood Pressure Disposition: further management by hospitalist MDM Narrative The patient is a 38-year-old female who presented to the emergency department for an evaluation of acute strokelike symptoms. The patient is 3 weeks p ostpartum. She started noticing a slight headache earlier this evening and then became aphasic. I received the prehospital notification from the business travel consultant requesting an evaluation for possible stroke alert. The patient was aphasic but her symptoms were improving. She also complained of a left-sided headache. She had no other focal neurologic deficit. The patient was made a stroke alert. I discussed the patient's laboratory and radiographic studies with her. I also discussed her case with the telemetry stroke neurologist from [facility]. At this time the patient does not appear to meet criteria for TPA as her symptoms are rapidly improving. She did recommend that we evaluate the patient further with inpatient studies such as MRI and possible echocardiogram. I discussed her case with the on-call [facility] hospitalist. They have agreed to evaluate the patient in the emergency department for further management and disposition. The patient was feeling much better on subsequent reevaluation. Impression & Plan Headache, Aphasia, Stroke-like symptoms Discharge Plan Visit Data Chief Complaint: Stroke Alert Stated Complaint: CVA SX. ED Provider: Broderick Chang Discharge Problem: Headache, Aphasia, Stroke-like symptoms Patient Disposition: Being Evaluated by Hospitalist Forms Stand Alone Forms: My [facility] [employer] Prescriptions Prescriptions: No Action zinc 50 mg Tablet 50 mg PO DAILY RF: 0 PNV cmb#95-ferrous fumarate-FA [] 28 mg iron- 800 mcg Tablet 1 - 2 tab PO BID RF: 0 Calcium Magnesium 500 mg calcium -250 mg Tablet 1 tab PO DAILY RF: 0 Dermott 3-6-9 1,200 mg Capsule 1 cap PO BID RF: 0 ibuprofen 600 mg tablet 600 mg PO Q8H PRN (Reason: pain) Qty: 20 RF: 0 amoxicillin-pot clavulanate 875-125 mg tablet 1 tab PO BID Qty: 20 RF: 0 Referrals Referrals: [place] [Primary Care Provider] - Discharge Problem: Headache Qualifiers: Headache type: unspecified Headache chronicity pattern: acute headache Intractability: not intractable Qualified Code(s): R51 - Headache The scribe's documentation has been prepared under my direction and personally reviewed by me in its entirety. I confirm that the note above accurately reflects all work, treatment, procedures, and medical decision making performed by me.
[2019-03-13 22:21] LABS: Partial Thromboplastin Time 25.9 Seconds (21.0-31.0); Prothrombin Time 10.3 Seconds (9.0-12.0)
[2019-03-13 22:25] LABS: Alanine Aminotransferase 45 U/L (12-78); Albumin Level 3.2 gm/dl (3.4-5.0); Aspartate Aminotransferase 22 U/L (15-37); BUN Creatinine Ratio 30.6 (10-20); Blood Urea Nitrogen 19 mg/dl (7-18); Carbon Dioxide 27 mmol/L (21-32); Chloride 106 mmol/L (98-107); Creatinine Clr Calc Pharmacy 123.8 ml/min; Est GFR (African American) 133.3; Glucose 89 mg/dl (70-99); Potassium 3.9 mmol/L (3.5-5.1); Sodium 141 mmol/L (136-145)
[2019-03-13 22:30] LABS: Albumin Globulin Ratio 1.1 (0.9-2); Alkaline Phosphatase 73 U/L (45-117); Basophils # (auto) 0.02 K/uL (0-0.2); Basophils % (auto) 0.4 %; Bilirubin,Total 0.4 mg/dl (0.2-1); Eosinophils # (auto) 0.12 K/uL (0-0.5); Eosinophils % (auto) 2.3 %; Globulin 2.9 gm/dl (2.5-4.0); Hematocrit (blood only) 31.9 % (37-47); Hemoglobin 10.4 g/dL (12.0-16.0); Immature Granulocytes # (auto) 0.02 K/uL (0.00-0.02); Immature Granulocytes % (auto) 0.4 %; Lymphocytes # (auto) 1.97 K/uL (1.2-3.4); Mean Corpuscular Hgb Conc 32.6 g/dL (32-36); Mean Corpuscular Volume 86.7 fL (80-100); Monocytes # (auto) 0.62 K/uL (0.11-0.59); Monocytes % (auto) 11.9 %; Neutrophils # (auto) 2.44 K/uL (1.4-6.5); Platelet Count 312 K/uL (130-400); RDW Coefficient of Variation 14.6 % (11.5-14.5); RDW Standard Deviation 46.4 fL (36.4-46.3); Red Blood Count 3.68 M/uL (4.2-5.4); Total Protein 6.1 gm/dl (6.4-8.2); Troponin I < 0.015 ng/ml (0-0.045); White Blood Count 5.19 K/uL (4.8-10.8)
--- NOTE | 2019-03-13 22:45 | XRay Report ---
XR chest 1V portable CLINICAL HISTORY: 38 years-old Female presenting with weakness. TECHNIQUE: Portable upright AP view of the chest was obtained. COMPARISON: None. FINDINGS: Cardiomediastinal silhouette normal. No focal opacity. No large effusion or pneumothorax. Osseous str uctures normal. Upper abdomen normal. IMPRESSION: 1. No acute cardiopulmonary disease. Electronically signed by: Clarence Rendon M.D. 03/13/2019 10:43 PM
--- NOTE | 2019-03-13 23:57 | History & Physical Report ---
Date of Service March 13, 2019 Assessment & Plan (1) Stroke-like symptoms: Patient is a 38yo F PMH Bipolar disorder, migraines, depression, MIA who is 3 weeks post- who presents to the ER for stroke-like symptoms. Stroke like sxs/aphasia/headache -?complex migraine/septic emboli/pelvic thrombus(PFO)/encephalopathy -Concerning in setting of recent endometritis -Will order echo for AM to ensure no ?septic emboli -In light of migraine hx, most likely explanation is complex migraine -Will order MRI and consult neurology considering strokelike symptoms Bipolar disorder/depression/MIA �We will consult psychiatry considering patient's concern for depression and status of no current medication use Code: Full Dispo: admit under obs to telemetry DVT prophylaxis: No indication (2) Headache: (3) Atypical migraine: (4) Depression: (5) MIA (generalized anxiety disorder): (6) Bipolar 1 disorder: History of Present Illness Chief Complaint: Stroke like symptoms Primary Care Provider: [facility] Patient is a 38yo F PMH Bipolar disorder, migraines, depression, MIA who is 3 weeks post- who presents to the ER for stroke-like symptoms. Patient states she was reading a story to her son and acutely couldn't get the words out. This was followed by numbness and tingling in her R hand which ascended up her R forearm. Her noted that her mouth was possibly droopy on one side, and the patient notes some blind spots/"holes" in her vision. She had a headache that started a few hours before these symptoms. She notes the numbness in her arm had resolved in the ambulance, and her speech started coming back slowly but she felt words were slurred, as if she were intoxicated. She has had 2 other instances of these visual disturbances/spots/holes in the past 2 days. She is asymptomatic on my assessment. In the ER, stroke alert was called due to her being aphasic in the field. CT head and head/neck CTA were normal. Labs overall normal, mildly dehydrated and anemic. Of note, patient recently admitted from 03/10-03/11/19 for delayed post- bleeding and endometritis. She was given 24 hours of gentamicin and clindamycin and discharged home on augmentin. She feels this is improving, having much less bleeding and discomfort. Discomfort well controlled with ibuprofen and tylenol. Regarding her h/o migraines, she states she can get them 1-2 times per week but then not have any for 1-2 months. Had numerous migraines without aura during her first trimester but none since then. Previously had success with fioricet; has not taken due to /breast feeding. Mental health history includes bipolar, depression, MIA. Patient has not been on meds x 5 years due to trying to get and having 2 children (3 weeks and 21 months old). Follows with psych. Has been very stressed in past few months and is unsure if she has depression. Denies SI/HI/PDW, denies thoughts of harming herself or baby. Does not feel her conditions have been well controlled off of medications and made an appointment with her psychiatrist for 03/17/19. Allergies Allergy/AdvReac Type Severity Reaction Status Date / Time NARCOTICS AdvReac Unknown SENSITIVITY Uncoded 03/13/19 21:45 /NAUSEA/DIZ ZINESS/VOMI TING Home Medications Home Medications Medication Instructions Recorded Confirmed Type Calcium Magnesium 1 tab PO DAILY 02/13/19 03/13/19 History Marshall 3-6-9 1 cap PO BID 02/13/19 03/13/19 History PNV cmb#95-ferrous fumarate-FA 1 - 2 tab PO BID 02/13/19 03/13/19 History [] zinc 50 mg PO DAILY 02/13/19 03/13/19 History ibuprofen 600 mg PO Q8H PRN #20 tab 02/23/19 03/13/19 Rx amoxicillin-pot clavulanate 1 tab PO BID #20 tab 03/11/19 03/13/19 Rx Past Med/Surg History Medical History delivery delivered Encounter for pre-operative examination 36 weeks gestation of with history of uterine myomectomy Ear pain, right (Acute) Family history of uterine fibroid History of anxiety History of depression Hx of endometriosis TMJ (temporomandibular joint disorder) NEVER LOCKED Surgical History History of anesthesia reaction SPINAL HEADACHE WITH PREVIOUS C/S C/S: 06/15/17: SAB X 5 attempts ("difficult 2/2 to bone") at L3-L4 at [facility]. Developed headache and meningismus soon after and was discharged home. Symptoms have waxed and waned but worsened and pt presented to ED for evaluation. Blood patch vs. conservative management discussed and pt opted to continue conservative treatment (fluids and caffeine treatment at home). 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: No Beliefs That Will Affect Care: None marital status: Current Living Situation: Family current occupational status: unemployed Other Information That Helps Us Care for You: No Feels Safe at Home: Yes Safety Concerns: Feels Safe At This Time Smoking Status: Never smoker Do You Dip or Chew Tobacco: No Second Hand Exposure: Yes Tobacco Cessation Education Requested by Patient: No Hx Alcohol Use: Yes Hx Substance Use: No Review of Systems Review of Systems: All systems reviewed & are unremarkable except as noted in HPI & below Constitutional: no fever, no chills, no body aches and no weakness Eyes: no blind spots, no diplopia and no spots in vision Symptoms resolved Respiratory: no cough, no dyspnea and no dyspnea on exertion Cardiovascular: no chest pain Genitourinary: + pelvic pain (tenderness to palpation of uterus) Neurologic: + tingling and + abnormal speech; no seizure-like activity, no dizziness and no syncope Symptoms resolved Psychiatric: + depression, + hopelessness, + anhedonia and + anxiety; no suicidal ideation Physical Exam Constitutional: WD/WN, vitals as above Eyes: PERRL, conjunctivae normal, anicteric sclerae ENMT: external ear and nose normal, oropharynx normal Neck: trachea midline, no thyromegaly Respiratory: normal respiratory effort, lungs clear to auscultation Cardiovascular: RRR, no murmur, no edema Gastrointestinal (Abdomen): normal bowel sounds, soft, nontender, no hepatosplenomegaly Skin: no rashes, warm and dry Neurologic: patellar DTR's 2+ bilat, sensation intact and PERRL, EOMI, accommodation nl, no face palsy, no dysarthria CN's II-XI intact bilaterally Speech / Cognition: no expressive aphasia Coordination: normal amtcgp-mr-upov test Psychiatric: Orientation: alert and oriented x 3 Speech: normal rate/rhythm/volume of speech Affect: + anxious affect Genitourinary: OB Exam Abdomen: + fundal height Fundus: + relation to umbilicus (3 cm below. Tender to palpation) Results & Data Vital Signs (Past 12 Hours) Vital Signs Temp Pulse Pulse Resp BP BP Pulse Ox 03/13/19 23:49 63 16 116/78 97 03/13/19 22:09 98 03/13/19 22:06 62 18 106/79 98 03/13/19 21:35 36.8 C 65 18 141/85 H 98 Laboratory Results 03/13/19 03/13/19 03/13/19 Range/Units 22:00 22:00 22:00 WBC (4.8-10.8) K/uL RBC (4.2-5.4) M/uL Hgb (12.0-16.0) g/dL Hct (37-47) % MCV (80-100) fL MCH (25-34) pg MCHC (32-36) g/dL RDW Std Deviation (36.4-46.3) fL RDW Coeff of Goldie (11.5-14.5) % Plt Count (130-400) K/uL MPV (7.4-10.4) fL Immature Gran % (Auto) % Neut % (Auto) % Lymph % (Auto) % [place] % (Auto) % Eos % (Auto) % Baso % (Auto) % Immature Gran # (Auto) (0.00-0.02) K/uL Neut # (Auto) (1.4-6.5) K/uL Lymph # (Auto) (1.2-3.4) K/uL [place] # (Auto) (0.11-0.59) K/uL Eos # (Auto) (0-0.5) K/uL Baso # (Auto) (0-0.2) K/uL PT 10.3 (9.0-12.0) Seconds INR 1.0 (0.9-1.1) APTT 25.9 (21.0-31.0) Seconds PTT Ratio 1.0 Sodium 141 (136-145) mmol/L Potassium 3.9 (3.5-5.1) mmol/L Chloride 106 (98-107) mmol/L Carbon Dioxide 27 (21-32) mmol/L Anion Gap 7.0 (3-11) BUN 19 H (7-18) mg/dl Creatinine 0.61 (0.6-1.2) mg/dl Est Cr Clr Drug Dosing 123.8 ml/min Est GFR ( Amer) 133.3 Est GFR (Non-Af Amer) 115.0 BUN/Creatinine Ratio 30.6 H (10-20) Glucose 89 (70-99) mg/dl POC Glucose (70-99) Calcium 9.0 (8.5-10.1) mg/dl Magnesium 2.0 (1.8-2.4) mg/dl Total Bilirubin 0.4 (0.2-1) mg/dl AST 22 (15-37) U/L ALT 45 (12-78) U/L Alkaline Phosphatase 73 (45-117) U/L Troponin I < 0.015 (0-0.045) ng/ml Total Protein 6.1 L (6.4-8.2) gm/dl Albumin 3.2 L (3.4-5.0) gm/dl Globulin 2.9 (2.5-4.0) gm/dl Albumin/Globulin Ratio 1.1 (0.9-2) Blood Type O Positive Antibody Screen NEGATIVE 03/13/19 03/13/19 Range/Units 22:00 21:59 WBC 5.19 (4.8-10.8) K/uL RBC 3.68 L (4.2-5.4) M/uL Hgb 10.4 L (12.0-16.0) g/dL Hct 31.9 L (37-47) % MCV 86.7 (80-100) fL MCH 28.3 (25-34) pg MCHC 32.6 (32-36) g/dL RDW Std Deviation 46.4 H (36.4-46.3) fL RDW Coeff of Goldie 14.6 H (11.5-14.5) % Plt Count 312 (130-400) K/uL MPV 9.0 (7.4-10.4) fL Immature Gran % (Auto) 0.4 % Neut % (Auto) 47.0 % Lymph % (Auto) 38.0 % [place] % (Auto) 11.9 % Eos % (Auto) 2.3 % Baso % (Auto) 0.4 % Immature Gran # (Auto) 0.02 (0.00-0.02) K/uL Neut # (Auto) 2.44 (1.4-6.5) K/uL Lymph # (Auto) 1.97 (1.2-3.4) K/uL [place] # (Auto) 0.62 H (0.11-0.59) K/uL Eos # (Auto) 0.12 (0-0.5) K/uL Baso # (Auto) 0.02 (0-0.2) K/uL PT (9.0-12.0) Seconds INR (0.9-1.1) APTT (21.0-31.0) Seconds PTT Ratio Sodium (136-145) mmol/L Potassium (3.5-5.1) mmol/L Chloride (98-107) mmol/L Carbon Dioxide (21-32) mmol/L Anion Gap (3-11) BUN (7-18) mg/dl Creatinine (0.6-1.2) mg/dl Est Cr Clr Drug Dosing ml/min Est GFR ( Amer) Est GFR (Non-Af Amer) BUN/Creatinine Ratio (10-20) Glucose (70-99) mg/dl POC Glucose 88 (70-99) Calcium (8.5-10.1) mg/dl Magnesium (1.8-2.4) mg/dl Total Bilirubin (0.2-1) mg/dl AST (15-37) U/L ALT (12-78) U/L Alkaline Phosphatase (45-117) U/L Troponin I (0-0.045) ng/ml Total Protein (6.4-8.2) gm/dl Albumin (3.4-5.0) gm/dl Globulin (2.5-4.0) gm/dl Albumin/Globulin Ratio (0.9-2) Blood Type Antibody Screen Diagnostic Findings CT head/brain wo con CLINICAL HISTORY: 38 years-old Female presenting with Stroke evaluation . TECHNIQUE: Multidetector CT imaging of the head was performed without the use of intravenous contrast. IV contrast: None. One or more dose lowering techniques were used consistent with the principles of ALARA (as low as reasonably achievable), including automatic exposure control, mA or kV adjustment to individual patient size, and/or use of iterative reconstruction. COMPARISON: Brain MR from 12/15/2014. CT DOSE (mGy.cm): The estimated cumulative dose is unavailable at the time of dictation. FINDINGS: Pneumatic System Conveyor Operator topogram: Unremarkable. Ventricles and sulci normal in size. No hemorrhage. Brain parenchyma normal in appearance with preserved wang-white differentiation. No acute territorial infarct. No mass effect or midline shift. No extra-axial fluid collection. Paranasal sinuses and mastoid air cells clear. Calvarium intact. IMPRESSION: 1. No acute intracranial abnormality. CT angio head w con CLINICAL HISTORY: 38 years-old Female presenting with aphasia. TECHNIQUE: Multidetector CT angiography of the head was performed after the administration of intravenous contrast. 3-D volumetric and/or maximum intensity projection (MIP) images were subsequently reconstructed for review. IV contrast: Optiray 320. One or more dose lowering techniques were used consistent with the principles of ALARA (as low as reasonably achievable), including automatic exposure control, mA or kV adjustment to individual patient size, and/or use of iterative reconstruction. COMPARISON: Noncontrast CT head performed contemporaneously. CT DOSE (mGy.cm): The estimated cumulative dose is unavailable to the time dictation. FINDINGS: Pneumatic System Conveyor Operator topogram: Unremarkable. Anterior circulation: Intracranial portions of the internal carotid arteries patent to the level of the termini. Anterior cerebral arteries patent. Middle cerebral arteries patent. Anterior communicating artery patent. Posterior circulation: Codominant vertebral arteries. Intradural portions of the vertebral arteries patent. Posterior inferior cerebellar arteries patent. Basilar artery patent. Anterior inferior cerebellar arteries poorly visualized. Superior cerebellar arteries patent. Posterior cerebral arteries patent. Posterior communicating arteries hypoplastic or aplastic. Dural venous sinuses: Patent. Other: Allowing for the phase of contrast, brain parenchyma within normal limits. Calvarium intact. IMPRESSION: 1. No evidence of aneurysm, focal vessel occlusion, or significant stenosis of the intracranial arteries. CT angio neck with con CLINICAL HISTORY: 38 years-old Female presenting with aphasia, stroke evaluation. TECHNIQUE: Multidetector CT angiography of the neck was performed after the administration of intravenous contrast. 3-D volumetric and/or maximum intensity projection (MIP) images were subsequently reconstructed for review. IV contrast: Optiray 320. One or more dose lowering techniques were used consistent with the principles of ALARA (as low as reasonably achievable), including automatic exposure control, mA or kV adjustment to individual patient size, and/or use of iterative reconstruction. Stenosis measurements were based on NASCET-like criteria (distal lumen diameter as the denominator for stenosis measurement). COMPARISON: None. CT DOSE (mGy.cm): The estimated cumulative dose is 1616.93 mGy.cm. FINDINGS: Pneumatic System Conveyor Operator topogram: Unremarkable. Aortic arch: Normal three-vessel aortic arch with patent origins of the branch vessels. Innominate artery: Patent. Right subclavian artery: Patent. Right common carotid artery: Patent. Right internal and external carotid arteries: Right carotid bifurcation patent. Right internal and external carotid arteries widely patent. Left common carotid artery: Patent. Left internal and external carotid arteries: Left carotid bifurcation patent. Left internal and external carotid arteries widely patent. Left subclavian artery: Patent. Vertebral arteries: Codominant vertebral arteries. Origins and courses of the bilateral vertebral arteries patent. Other: Limited intracranial evaluation within normal limits. Soft tissues of the neck normal allowing for the phase of contrast. Normal cervical spine. Lung apices clear. IMPRESSION: 1. No evidence of dissection, focal vessel occlusion, or significant stenosis of the cervical arteries. Code Status & VTE Plan Code Status Full Supervising Physician Co-Signing Physician Notes Attending addendum: I have physically seen this patient, have supervised the medical residents activities, and agree with the H&P unless as otherwise noted. Assessment and Plan: Strokelike symptoms- Differential includes complex migraine/septic emboli/pelvic thrombus via PFO to embolic stroke/encephalopathy/arrhythmia/others. Admit to monitored bed. Order complete echocardiogram. Order MRI brain without contrast. Stroke without TPA protocol. Consult neurology. depression/depression/generalized anxiety disorder- Consult psychiatry. Remainder of orders and notations as noted. PG Care Time/CCT Total # of Minutes Spent Total Time Spent with Patient: Total time spent is greater than 50% in coordination of care (as documented) at patient's floor/unit and/or counseling patient: Resident Activity Tracking Resident Involvement: Resident Care Provided Care Provided: Adult Hospital Medicine (1) Headache Headache chronicity pattern: acute headache Headache type: unspecified Intractability: not intractable Qualified Code(s): R51 - Headache
[2019-03-14] MEDS ORDERED: IBUPROFEN 600 MG PO PRN (00:23)
[2019-03-14] MEDS ORDERED: PHARMACIST DISCHARGE MED REC CONSULT PRN (02:04)
[2019-03-14] MEDS ORDERED: ACETAMINOPHEN 325 MG TAB PO PRN (02:04)
[2019-03-14] MEDS ORDERED: ALUMINUM/MAGNESIUM SUSP 30 ML UDC PO PRN (02:04)
[2019-03-14] MEDS ORDERED: SODIUM CHLORIDE 0.9% 1000ML 1,000 ML IV SCH (02:04)
[2019-03-14] MEDS ORDERED: MAGNESIUM HYDROXIDE SUSP 30 ML UDC PO PRN (02:04)
[2019-03-14] MEDS ORDERED: ONDANSETRON INJ 2 MG/ML 2 ML VIAL IV PRN (02:04)
[2019-03-14] MEDS ORDERED: IBUPROFEN 200 MG TAB PO PRN (04:56)
[2019-03-14 06:15] LABS: Basophils # (auto) 0.02 K/uL (0-0.2); Basophils % (auto) 0.4 %; Eosinophils # (auto) 0.14 K/uL (0-0.5); Eosinophils % (auto) 2.7 %; Hematocrit (blood only) 34.8 % (37-47); Hemoglobin 11.2 g/dL (12.0-16.0); Immature Granulocytes # (auto) 0.01 K/uL (0.00-0.02); Immature Granulocytes % (auto) 0.2 %; Lymphocytes # (auto) 1.62 K/uL (1.2-3.4); Lymphocytes % (auto) 31.7 %; Mean Corpuscular Hgb Conc 32.2 g/dL (32-36); Mean Corpuscular Volume 86.8 fL (80-100); Mean Platelet Volume 9.2 fL (7.4-10.4); Monocytes # (auto) 0.52 K/uL (0.11-0.59); Monocytes % (auto) 10.2 %; Neutrophils % (auto) 54.8 %; Platelet Count 327 K/uL (130-400); RDW Coefficient of Variation 14.5 % (11.5-14.5); RDW Standard Deviation 46.3 fL (36.4-46.3); Red Blood Count 4.01 M/uL (4.2-5.4); White Blood Count 5.11 K/uL (4.8-10.8)
[2019-03-14 06:45] LABS: BUN Creatinine Ratio 21.1 (10-20); Calcium 8.5 mg/dl (8.5-10.1); Creatinine Clr Calc Pharmacy 113.2 ml/min; Est GFR (African American) 131.9; Est GFR (Non-African American) 113.8; Potassium 3.7 mmol/L (3.5-5.1)
--- NOTE | 2019-03-14 07:15 | Magnetic Resonance Report ---
Brain MRI WITHOUT CONTRAST HISTORY: Slurred speech. Right arm paresthesias. stroke like sx TECHNIQUE: Multiplanar multisequence MRI of the brain was performed without the use of contrast. COMPARISON STUDY: Head CT 03/13/2019. Brain MRI 12/15/2014. FINDINGS: There are no areas of restricted diffusion to suggest acute infarction. The midline structu res are intact. The paranasal sinuses are clear. The mastoid air cells are clear. The ventricles and sulci are within normal limits for age. There is no mass, hematoma, midline shift. The major vascular flow-voids at the skull base are well maintained. Incidental note is made of a stable T1 and T2 hype rintense lesion within the left side of the clivus. There is consistent with a hemangioma. IMPRESSION: No acute intracranial abnormality. Electronically signed by: Waylon Dangelo M.D. 03/14/2019 7:14 AM
[2019-03-14] MEDS ORDERED: AMOXICILLIN/CLAVULANATE 875 MG TAB PO SCH (08:00)
[2019-03-14 08:22] LABS: Estimated Average Glucose 111 mg/dl; Hemoglobin A1C 5.5 % (4.5-5.6)
--- NOTE | 2019-03-14 09:01 | Neurology Consultation ---
Date of Consultation March 14, 2019 Assessment & Plan (1) Complicated migraine: I suspect this patient had a complicated migraine. She is completely asymptomatic at this time, has an intact neurological examination, and had a completely unremarkable neuro imaging evaluation. However, a TIA occurring in the / time frame complicated by endometritis cannot be excluded with 100% certainty. Follow-up with results of echocardiogram. I would not recommend starting an antiplatelet or anticoagulant drug at this time. Patient may follow-up in neurology clinic. Please feel free to contact me if you have any additional questions or concerns regarding this patient's neurological assessment. History of Present Illness Reason for Consultation: Strokelike episode, complicated migraine? Requesting Physician: Henrietta Knowles Attending Physician: Fred Arana, DO History of Present Illness The patient is a 38-year-old female with a chief complaint of word finding difficulty that began acutely yesterday evening about 1 hour prior to arrival. She recalls having a low-grade left-sided headache for several hours prior to symptom onset. She then developed a vision disturbance, off to the right which she describes as a bright area with an associated area of vision loss in the central part of her vision. This vision disturbance persisted for about 20 minutes and was also associated with paresthesias affecting the right hand and the development of word finding difficulty and perhaps some facial weakness on either the left or right side which was noted by her . EMS was summoned and found the patient to be aphasic. Her neurological symptoms significantly improved by the time she was assessed in the emergency department although she still had a moderate left-sided headache at that time which eventually resolved with treatment. Past medical history notable for endometritis diagnosed earlier this week and treated with IV antibiotics and amoxicillin which she has continued as an outpatient. The patient is also 3 weeks , delivery, second child. Patient has been breast-feeding and indicates that she has otherwise been doing well. She does have a past medical history of episodic migraine with aura which have been a bit more active during her first trimester, but eventually settling down towards the latter part of her . She denies a history of complicated migraine, stroke or TIA. Past medical history also notable for spinal headache that occurred during her previous delivery in 2017. Currently, the patient feels well. She denies headache, vision disturbance, numbness, weakness, or problems with speech or comprehension. Patient denies a family history of stroke, TIA, or blood clot in any first-degree family member. Additional details as below. Allergies Allergy/AdvReac Type Severity Reaction Status Date / Time NARCOTICS AdvReac Unknown SENSITIVITY Uncoded 03/13/19 21:45 /NAUSEA/DIZ ZINESS/VOMI TING Home Medications Home Medications Medication Instructions Recorded Confirmed Type Calcium Magnesium 1 tab PO DAILY 02/13/19 03/13/19 History [place] 3-6-9 1 cap PO BID 02/13/19 03/13/19 History PNV cmb#95-ferrous fumarate-FA 1 - 2 tab PO BID 02/13/19 03/13/19 History [] zinc 50 mg PO DAILY 02/13/19 03/13/19 History ibuprofen 600 mg PO Q8H PRN #20 tab 02/23/19 03/13/19 Rx amoxicillin-pot clavulanate 1 tab PO BID #20 tab 03/11/19 03/13/19 Rx Patient History Medical History delivery delivered Encounter for pre-operative examination 36 weeks gestation of with history of uterine myomectomy Ear pain, right (Acute) Family history of uterine fibroid History of anxiety History of depression Hx of endometriosis TMJ (temporomandibular joint disorder) NEVER LOCKED Surgical History History of anesthesia reaction SPINAL HEADACHE WITH PREVIOUS C/S C/S: 06/15/17: SAB X 5 attempts ("difficult 2/2 to bone") at L3-L4 at [facility]. Developed headache and meningismus soon after and was discharged home. Symptoms have waxed and waned but worsened and pt presented to ED for evaluation. Blood patch vs. conservative management discussed and pt opted to continue conservative treatment (fluids and caffeine treatment at home). 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 Beliefs That Will Affect Care: None marital status: Current Living Situation: Family current occupational status: unemployed Other Information That Helps Us Care for You: No Feels Safe at Home: Yes Safety Concerns: Feels Safe At This Time Smoking Status: Never smoker Do You Dip or Chew Tobacco: No Second Hand Exposure: Yes Tobacco Cessation Education Requested by Patient: No Hx Alcohol Use: Yes Hx Substance Use: No Review of Systems Constitutional: no fever and no chills Eyes: as per Subjective / HPI Ear, Nose, Mouth, Throat: no tinnitus and no hearing loss Respiratory: no cough and no dyspnea Cardiovascular: no chest pain and no palpitations Gastrointestinal: no nausea and no vomiting Genitourinary: as per Subjective / HPI; no dysuria Musculoskeletal: no limited range of motion, no myalgia and no muscle atrophy Integumentary: no rash and no lesions Neurologic: as per Subjective / HPI Psychiatric: History of bipolar disorder/depression which the patient indicates she follows with a counselor. Reports that this issue has been stable without medication. Hematologic / Lymphatic: no easy bleeding, no easy bruising and no coagulopathy Physical Exam Physical Exam: The patient is a well-developed, well-nourished adult female. She is alert and fully oriented. Recent and remote memory intact. Attention and concentration normal. Patient exhibits a normal spontaneous speech pattern. She is able to name objects and repeat phrases. Patient exhibits an age- appropriate fund of knowledge and normal vocabulary. Visual mena full to confrontation. Visual acuity normal. Pupils equal round reactive to light and accommodation. Eye movements normal. Facial sensation intact. There is no facial droop or weakness. Hearing intact. Palate elevates to midline. Shoulder shrug intact. Tongue protrudes to midline. Sensation intact to all modalities in all 4 limbs. Deep tendon reflexes intact and symmetrical for the arms and legs. Plantar responses downgoing bilaterally. There is no dysdiadochokinesia or dysmetria with chyrjf-xg-jgax or ppow-tf-bufy bilaterally. Ophthalmoscopic examination reveals normal-appearing optic disks and posterior segments. No papilledema or hemorrhages. Carotid pulses normal bilaterally, no bruits to auscultation. Gait and station normal. Patient exhibits normal muscle strength and tone for all 4 limbs. No atrophy. No abnormal movements observed. Results & Data Vital Signs (Past 12 Hours) Vital Signs Temp Pulse Pulse Resp BP BP Pulse Ox 03/14/19 07:09 37.0 C 80 16 104/67 98 03/14/19 02:16 36.8 C 68 16 122/79 95 03/14/19 01:49 63 16 118/82 97 03/14/19 01:35 54 L 16 118/83 95 03/13/19 23:49 63 16 116/78 97 03/13/19 22:09 98 03/13/19 22:06 62 18 106/79 98 03/13/19 21:35 36.8 C 65 18 141/85 H 98 Laboratory Results Recent labs reviewed. WBC 5.11, hemoglobin 11.2, platelet count 327, sodium 141, potassium 3.7, BUN 13, creatinine 0.63, glucose 77, calcium 8.5, magnesium 2.0, lipid panel within normal limits Diagnostic Findings A CT of the head completed at the time of presentation was unremarkable. No hemorrhage or acute process. Images and report reviewed. CT angiogram of the head and neck also completed. No abnormalities observed. No evidence for vascular occlusion, dissection, or aneurysm. MRI of the brain within normal limits. No evidence for acute or subacute infarct. No evidence of hemorrhage. No evidence for demyelinating disease. Normal brain parenchyma. There is an incidental lesion within the left side of the clivus probably consistent with a hemangioma. Images and report reviewed. Electrocardiogram reveals normal sinus rhythm, 69 bpm
--- NOTE | 2019-03-14 10:37 | Psychiatric Consultation ---
Date of Consultation March 14, 2019 Impression / Recommendations Impression Difficulty to determine if her current difficulties are a result of depression versus exacerbation of her chronic psychiatric symptoms - patient educated on this. With review of psychiatric history, there is limited criteria for a bipolar diagnosis, not clearly meeting for even hypomanic episodes previously. She does admit to binge eating and excessive spending (on necessary items) in her past history, but believes these had been coping strategies for her in dealing with her anxiety and depression. Given current presenting symptoms, and that patient plans to continue , would suggest trial of an SSRI - sertraline - to target anxiety and depression. Would recommend initiating at 25mg until tolerance is established, then increasing to 50mg daily with appropriate titration on an outpatient basis. Given question of bipolar presentation, would be cautious with initiation, and patient was encouraged to observe for activation, grandiosity, increased energy, drastic changes in sleeping patterns, and other manic/hypomanic criteria. With plan to continue , and no clear bipolar criteria, would be hesitant to initiate a mood stabilizer in this setting. The above thoughts were discussed with the patient who verbalized desire for medications to assist with anxiety and low mood. When discussing outpatient follow-up, patient reports preference to continue care through [facility] - appointment scheduled for 03/17/19. Pt reported preference to discuss medications in further detail with the prescriber who will continue to manage her condition. She was receptive of information provided and was agreeable to allowing us to fax our consultation to her psychologist and her provider at [facility]. Will provide patient with a list of psychiatric prescribers in the area as well, in the case that her prescriber at [facility] may feel uncomfortable initiating or managing her treatment moving forward. Pt verbalized understanding of all topics discussed and was appreciative of the conversation. She was encouraged to reach out to our service with any other questions or concerns. Discussed signs and symptoms of depression and encouraged patient to utilize and therapist for supports. Recommended surveillance for thoughts to harm herself, , or children; thoughts of abandonment/negligence toward children, or drastic fluctuations in mood. Pt denied concerns related to safety or abuse within the home and denied that any of the above thoughts have been present. Pt was encouraged to reach out to supports, call [facility], or present to the ED with any thoughts to harm herself or her family. She verbalized understanding of the conversation and was agreeable with recommendations. Dr. Bebeto Reyes was directly involved in review and discussion of the patient's case and participated in medical decision making regarding treatment recommendations. Appreciate the opportunity to participate in the care of this patient. Inventory Assets Strengths: love for family/children, willingness for treatment Needs: effective medication regimen for management of anxiety and depression Risk Factors Assessment Male: No : Yes Health Problems: No Mental Health Diagnoses: Yes Substance Use Disorders: No Previous Attempt: No Previous Psychiatric Hospitalization: No Hopelessness: No Smoker: No Protective Factors Assessment Buddhism Beliefs: No : Yes Responsible for Young Children: Yes Employed: Yes Stable Relationships: Yes Supportive Family: Yes (brother, ) Good Rapport with Provider: Yes CPT Code Initial Consultation: 86214 Psych History Identifying Data 38-year-old female admitted medically on 03/13/19 due to complaints of stroke- like symptoms, predominantly transient aphasia. Suspected to be a result of a complicated migraine, though TIA cannot be entirely ruled out. Has a reported psychiatric history reported to be "bipolar disorder, depression, and MIA. Psychiatric consultation is requested as patient is 3-weeks and depression is questioned. Information is gathered from hospital documentation, patient's , and the patient herself, the combination of which is considered to be reliable. Chief Complaint "I'm already overwhelmed with regular life...then being in the hospital on top of it." History of Present Illness Kimberley Rivera is a 38-year-old female admitted medically on 03/13/2019 after experiencing strokelike symptoms and presenting to the emergency department. PMH is significant for delivery by section 3-weeks prior to admission. The period has been complicated by diagnosis of endometritis, leading to hospitalization on 03/10/19. Pt was reportedly discharged home after 2 days. Patient reports experiencing mild difficulty concentrating and numbness in her right fingertips on 03/11/2019. When the symptoms recurred with increased severity on 03/13/2019, the patient presented to the ED via EMS. Patient reports difficulty concentrating/"accessing my words or thoughts", spotting of her visual mena, headache, and numbness and tingling in her right arm and hands. Patient was told by her that there was some possible facial drooping as well. Upon medical workup, there is no clear evidence of a stroke though a TIA cannot be entirely ruled out. Diagnosis highest on differential is complicated migraine, with a previous history of uncomplicated migraines per patient. Psychiatric consultation was requested as patient reports a history of possible bipolar disorder versus major depressive disorder and anxiety. Concern surrounding the possibility of depression, requesting medication recommendations. Patient was seen for initial part of the assessment with , Christopher, present to provide his. Patient admits that she has been feeling rather "overwhelmed" for several months, most specifically "when I was trying to get with my last child." Patient states that she is seeing psychiatric providers previously, and most recent known diagnosis was bipolar 2 disorder and anxiety. Patient states "they also talked about major depressive disorder." Per patient, she has been tried on several mood stabilization agents, but never on an antidepressant medication as monotherapy. Most notable symptoms in regard to possible ricardo or hypomania are patient's previous tendencies to binge eat or shop excessively. Patient states that she feels she he is these behaviors as coping strategies to manage her emotions. Patient denies extended periods of hyperactivity, limited need for sleep, flight of ideas, difficulty organizing thoughts, or increased reckless behavior. She does not acknowledge any clear fluctuations in mood. Her most recent medication regimen was Wellbutrin in combination with Depakote. Patient admits that she has been off of medications for the past 4-5 years, as it was advised that she discontinue her current regimen during her attempts to get . Patient reports that her mood and anxiety concerns predate her years as a mother. She is seeing a psychiatric provider back in [place] in 2011, and briefly followed with a provider in [place] prior to discontinuing her medications. Patient admits to low mood, feeling overwhelmed frequently, crying spells, and feeling "like I am not a good enough mom for my kids." She also endorses fatigue, low energy, and headaches which may be situational or related to her psychiatric concerns. Patient does admit to "catastrophizing everything", frequently worrying about her children's health and how she will complete tasks for the day. She does admit that she does experience episodes where "I just collapsed and cry", associated with hyperventilation, chest tightness, and headache. Patient states these episodes occur about once a week, and are often triggered by feeling overwhelmed in the care of her children. They tend to last for 15-30 minutes before resolving. Patient reports her largest concern presently is feeling as though she cannot enjoy the time she is spending with her children. She does report a desire to connect with both of her children, and both parents deny any concern for abandonment or neglect. Patient admits "sometimes I feel bad for my kids, I feel like I am not giving the my best." She reports they desire at times to "just get away until I can collect myself", but denies any active or passive suicidal ideation, plan, or intent. Patient denies any thoughts to harm her children or her . She admits that her psychiatric symptoms were exacerbated following the delivery of her first child as well. Patient is agreeable for medication recommendations; however, desires to continue breast-feeding if able. Pt denies SI, HI, SIB, A/V hallucinations, paranoia, ricardo/hypomania, other symptoms more suggestive of a bipolar presentation, OCD, PTSD, and other specific psychiatric symptoms. Past Psychiatric History Previous Psych History: Pt reports history of treatment for psychiatric concerns since childhood. Pt struggled with binge eating and participated in a 21-week IOP in [place] (2010), which has been successful for managing urges. She was seen by Dr. Mack and was diagnosed with bipolar II disorder and anxiety. Pt states there had also been discussion about major depressive disorder. She has most recently been treated with Wellbutrin and Depakote, but was recommended to discontinue medications 4-5 years ago when attempting to get . She is not currently taking medications and does not have established care with a local psychiatric prescriber. Current Psychiatric Diagnosis: Reports: bipolar II, MDD, and anxiety Outpatient Services: Therapist/Psychologist - Cindy Carranza, PhD Previous Psych Admissions: None History of Previous Suicide Attempt: No Past Medication Trials: Per patient reports: 1. Wellbutrin 2. Depakote 3. Abilify 4. Trileptal Allergies Allergy/AdvReac Type Severity Reaction Status Date / Time NARCOTICS AdvReac Unknown SENSITIVITY Uncoded 03/13/19 21:45 /NAUSEA/DIZ ZINESS/VOMI TING Home Medications Home Medications Medication Instructions Recorded Confirmed Type Calcium Magnesium 1 tab PO DAILY 02/13/19 03/13/19 History [place] 3-6-9 1 cap PO BID 02/13/19 03/13/19 History PNV cmb#95-ferrous fumarate-FA 1 - 2 tab PO BID 02/13/19 03/13/19 History [] zinc 50 mg PO DAILY 02/13/19 03/13/19 History ibuprofen 600 mg PO Q8H PRN #20 tab 02/23/19 03/13/19 Rx amoxicillin-pot clavulanate 1 tab PO BID #20 tab 03/11/19 03/13/19 Rx Family History Mother - depression; mother and brother attempted suicide. Both mother and brother struggled with abuse of drugs and alcohol. Substance Abuse History Pt denies significant history of experimentation with or misuse of alcohol or other substances. Non-smoker. 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 leave) Marital Status: Number Of Children: 2 - 21 month old son, 3 week old daughter Beliefs That Will Affect Care: None History of Legal Problems: Denies Psychological Trauma History Comment: Reports "crappy childhood", but denies explicit history of physical, emotional, or sexual abuse Patient History Medical History delivery delivered Encounter for pre-operative examination 36 weeks gestation of with history of uterine myomectomy Ear pain, right (Acute) Family history of uterine fibroid History of anxiety History of depression Hx of endometriosis TMJ (temporomandibular joint disorder) NEVER LOCKED Surgical History History of anesthesia reaction SPINAL HEADACHE WITH PREVIOUS C/S C/S: 06/15/17: SAB X 5 attempts ("difficult 2/2 to bone") at L3-L4 at [facility]. Developed headache and meningismus soon after and was discharged home. Symptoms have waxed and waned but worsened and pt presented to ED for evaluation. Blood patch vs. conservative management discussed and pt opted to continue conservative treatment (fluids and caffeine treatment at home). History of appendectomy History of section History of myomectomy History of wisdom tooth extraction Nausea and vomiting after administration of anesthetic agent Family History Other Cancer Diabetes Heart disease Hypertension Seizure Social History Preferred Language: Faroese Communication Ability: Effective Supervisor Pumping Station Required: No Beliefs That Will Affect Care: None marital status: Current Living Situation: Family current occupational status: unemployed Other Information That Helps Us Care for You: No Feels Safe at Home: Yes Safety Concerns: Feels Safe At This Time Smoking Status: Never smoker Do You Dip or Chew Tobacco: No Second Hand Exposure: Yes Tobacco Cessation Education Requested by Patient: No Hx Alcohol Use: Yes Hx Substance Use: No Physical Exam Psychiatric: Orientation: alert, oriented x 3 and cooperative Apperance: appropriately dressed, appropriately groomed and appeared stated age Eye Contact: good eye contact Motor Behavior: no abnormal motor movements (seated upright on bed) Speech: normal rate/rhythm/volume of speech Affect: + anxious affect (mildly) and + tearful affect Mood: + depressed mood and + anxious mood "Just overwhelmed, like I can't enjoy anything" Thought Process: goal directed thought process, linear/logical thought process and clear/coherent thought process Thought Content: reality based without delusions and + guilt Suicidal Thoughts: denies suicidal thoughts and denies suicidal plan Homicidal Thoughts: denies homicidal thoughts Hallucin ations: no auditory hallucinations and no visual hallucinations Cognition: remote memory grossly intact, attention grossly intact and language grossly intact Estimated Intelligence: consistent with education level Insight: + fair insight Judgement: good judgement Vital Signs (Past 24 Hours): Last Vital Signs Temp 37.0 C 03/14/19 07:09 Pulse 80 03/14/19 07:09 Resp 16 03/14/19 07:09 BP 104/67 03/14/19 07:09 Pulse Ox 98 03/14/19 07:09 Review of Systems Constitutional: reported diagnosis of endometritis on 03/10/19; reports chronic fatigue Cardiovascular: denied Respiratory: denied Gastrointestinal: reports GI upset from ABX regimen, abdominal pain s/p C- section/infection Neurological: denied Musculoskeletal: reports back pain Psychiatric: denies symptoms other than stated above Total of at least 10 systems reviewed, pertinent positives as above and in HPI. Results & Data Medications Administered Acetaminophen (Tylenol) 650 mg PO Q4H PRN PRN Reason: Pain or Fever Stop: 04/13/19 02:03 Last Admin: 03/14/19 02:35 Dose: 650 mg Documented by: [id number] Amoxicillin/Clavulanate Potassium (Augmentin 875mg) 1 tab PO BIDM KALANI Stop: 03/24/19 07:59 Last Admin: 03/14/19 07:56 Dose: 1 tab Documented by: [id number] Sodium Chloride (Nss 1000ml) 1,000 mls @ 50 mls/hr IV .Q20H KALANI Stop: 04/13/19 02:03 Last Admin: 03/14/19 02:35 Dose: 50 mls/hr Documented by: [id number] Ibuprofen (Advil) 400 mg PO TID PRN PRN Reason: Headache Stop: 04/13/19 04:55 Last Admin: 03/14/19 05:24 Dose: 400 mg Documented by: [id number] Ioversol (Optiray 320 125ml) 118 ml IV ONCE PRN PRN Reason: Interaction Checking Stop: 03/17/19 21:50 Last Admin: 03/13/19 21:52 Dose: 118 ml Documented by: [id number]
--- NOTE | 2019-03-15 08:44 | Discharge Summary ---
Date of Service March 14, 2019 Admission HPI Per Admitting Provider Kimberley Rivera is a 38-year-old female admitted medically on 03/13/2019 after experiencing strokelike symptoms and presenting to the emergency department. PMH is significant for delivery by section 3-weeks prior to admission. The period has been complicated by diagnosis of endometritis, leading to hospitalization on 03/10/19. Pt was reportedly discharged home after 2 days. Patient reports experiencing mild difficulty concentrating and numbness in her right fingertips on 03/11/2019. When the symptoms recurred with increased severity on 03/13/2019, the patient presented to the ED via EMS. Patient reports difficulty concentrating/"accessing my words or thoughts", spotting of her visual mena, headache, and numbness and tingling in her right arm and hands. Patient was told by her that there was some possible facial drooping as well. Upon medical workup, there is no clear evidence of a stroke though a TIA cannot be entirely ruled out. Diagnosis highest on differential is complicated migraine, with a previous history of uncomplicated migraines per patient. Psychiatric consultation was requested as patient reports a history of possible bipolar disorder versus major depressive disorder and anxiety. Concern surrounding the possibility of depression, requesting medication recommendations. Patient was seen for initial part of the assessment with , Christopher, present to provide his. Patient admits that she has been feeling rather "overwhelmed" for several months, most specifically "when I was trying to get with my last child." Patient states that she is seeing psychiatric providers previously, and most recent known diagnosis was bipolar 2 disorder and anxiety. Patient states "they also talked about major depressive disorder." Per patient, she has been tried on several mood stabilization agents, but never on an antidepressant medication as monotherapy. Most notable symptoms in regard to possible ricardo or hypomania are patient's previous tendencies to binge eat or shop excessively. Patient states that she feels she he is these behaviors as coping strategies to manage her emotions. Patient denies extended periods of hyperactivity, limited need for sleep, flight of ideas, difficulty organizing thoughts, or increased reckless behavior. She does not acknowledge any clear fluctuations in mood. Her most recent medication regimen was Wellbutrin in combination with Depakote. Patient admits that she has been off of medications for the past 4-5 years, as it was advised that she discontinue her current regimen during her attempts to get . Patient reports that her mood and anxiety concerns predate her years as a mother. She is seeing a psychiatric provider back in [place] in 2011, and briefly followed with a provider in [place] prior to discontinuing her medications. Patient admits to low mood, feeling overwhelmed frequently, crying spells, and feeling "like I am not a good enough mom for my kids." She also endorses fatigue, low energy, and headaches which may be situational or related to her psychiatric concerns. Patient does admit to "catastrophizing everything", frequently worrying about her children's health and how she will complete tasks for the day. She does admit that she does experience episodes where "I just collapsed and cry", associated with hyperventilation, chest tightness, and headache. Patient states these episodes occur about once a week, and are often triggered by feeling overwhelmed in the care of her children. They tend to last for 15-30 minutes before resolving. Patient reports her largest concern presently is feeling as though she cannot enjoy the time she is spending with her children. She does report a desire to connect with both of her children, and both parents deny any concern for abandonment or neglect. Patient admits "sometimes I feel bad for my kids, I feel like I am not giving the my best." She reports they desire at times to "just get away until I can collect myself", but denies any active or passive suicidal ideation, plan, or intent. Patient denies any thoughts to harm her children or her . She admits that her psychiatric symptoms were exacerbated following the delivery of her first child as well. Patient is agreeable for medication recommendations; however, desires to continue breast-feeding if able. Pt denies SI, HI, SIB, A/V hallucinations, paranoia, ricardo/hypomania, other symptoms more suggestive of a bipolar presentation, OCD, PTSD, and other specific psychiatric symptoms. Principal Diagnosis Complex migraine Discharge Data Allergies Allergy/AdvReac Type Severity Reaction Status Date / Time NARCOTICS AdvReac Unknown SENSITIVITY Uncoded 03/19/19 17:31 /NAUSEA/DIZ ZINESS/VOMI TING Consultations 03/13/19 23:05 ED Decision to Admit Stat 03/14/19 02:04 Consult Case Management - Discharge Planning Routine Consult Neurology Routine Consult Psychiatry Routine Ordered Studies 03/13/19 21:26 CT head/brain wo con Stat 03/13/19 21:27 CT angio head w con Stat CT angio neck with con Stat 03/14/19 03:09 MR brain wo con Routine Hospital Course (1) Stroke-like symptoms: no acute changes seen on MRI brain no abnormalities seen on CTA head and neck d/w Dr. Ortega, likely represents complex migraine headaceh all of her symptoms resolved, can go home (2) Headache: complex migraine no further symptoms after 24 hours, can go home (3) Atypical migraine: see above (4) Depression: seen by psychiatry recommended Zoloft 25mg daily and if tolerating could increase to 50mg daily patient offered prescription she would like to wait and follow up with her outpatient physician (5) MIA (generalized anxiety disorder): also, psychiatry recommending a trial of Zoloft again, she would like to wait to start as outpatient (6) Bipolar 1 disorder: see above she has outpatient appt set up with psychiatry Total Time Total Time Spent Total Time Spent (In Minutes): 32 Discharge Plan Discharge Items Patient Disposition: Home - Self-Care Reason For Visit: COMPLEX MIGRAINE, STROKE LIKE SYMPTOMS Discharge Diagnosis: Complex migraine Condition: Good Discharge Goals: Improve disease control and Improve function Activity: Resume your previous activity Non-emergency contact: Primary Care Provider and Psychiatrist Call non-emergency contact if: you have any medication questions, your symptoms worsen, your pain is not controlled, your pain is worsening and you have a fever Follow-up/Referrals: [facility] [Primary Care Provider] - Diet: Regular Addtl Provider Instructions: Medications: no changes Acute neurologic symptoms MRI brain with no acute changes CT angiogram of the head and neck normal echocardiogram normal no arrhythmias on the monitor Dr. Ortega feels that your symptoms are employment program representative of complex migraine Post depression, h/o bipolar disorder our psychiatry team recommends Zoloft 25mg daily, once tolerating can increase to 50mg can defer this to psychiatry team that you follow up with as outpatient FOLLOW UP - [facility] in one week Prescriptions: Continued zinc 50 mg Tablet 50 mg PO DAILY RF: 0 PNV [id number] fumarate-FA [] 28 mg iron- 800 mcg Tablet 3 tab PO DAILY RF: 0 Calcium Magnesium 500 mg calcium -250 mg Tablet 1 tab PO DAILY RF: 0 [place] 3-6-9 1,200 mg Capsule 1 cap PO BID RF: 0 ibuprofen 600 mg tablet 600 mg PO Q8H PRN (Reason: pain) Qty: 20 RF: 0 amoxicillin-pot clavulanate 875-125 mg tablet 1 tab PO BID Qty: 20 RF: 0 Stand-Alone Forms: [facility]/Other Patient Handouts: Headaches Migraines and Cluster, Migraine Headache Triggers Prevent, Migraine Meds Lifestyle Change, Stroke Dc Discharge Orders: Discharge Order (Routine); Ordered 03/14/19 Ordered By: Fred Arana Admission Data Admit Date/Time: 03/14/19 00:59 Attending Provider: Fred Arana Admit Provider: Henrietta Knowles Primary Care Provider: [facility] Other Providers: Reynaldo Guzman ; Gabino Ortega ; Mohan Gatica I Service: Telemetry Other Interventions: Discharge Summary Assessment (RN) Last Done: 03/14/19 13:59 DC Date/Time DO NOT enter until pt leaves facility: 03/14/19 14:30
== END 2019-03-14 14:30 | disposition home or self-care (01) ==
LOC: MERGE 21:31 → 2S 21:31 → SUATTDRO 03-14 00:59 → 2S 03-14 01:49
DX: Z88.8 Allergy status to other drugs, medicaments and biological substances; R47.01 Aphasia; G43.909 Migraine, unspecified, not intractable, without status migrainosus; F31.9 Bipolar disorder, unspecified; F32.9 Major depressive disorder, single episode, unspecified; R51 Headache; O90.89 Other complications of the puerperium, not elsewhere classified